=== PATIENT | female | born 1965 | race Caucasian/White ===

== ENCOUNTER 2016-06-09 19:24 | Inpatient (IN) | payer BC ==
[~2016-06-09 19:24] MED LIST: ATENOLOL25 MG PO; CLOTRIMAZOLE10 MG PO; FOLIC ACID1 MG PO; LISINOPRIL10 MG PO; OMEPRAZOLE20 M1; SERTRALINE HCL50 MG PO; SUBOXONE1 MI1; THIAMINE HCL100 MG PO
--- NOTE | 2016-06-09 23:19 | DIAGNOSTIC IMAGING REPORT ---
PROCEDURE: US ABDOMEN ULTRASOUND-LIMITED INDICATION: Epigastric and abdominal pain. History of pancreatitis. TECHNIQUE: Lyle scale and color Doppler sonographic images of the abdomen were obtained. COMPARISON: Compared to CT abdomen and pelvis on 11/26/2015 and abdominal ultrasound (11/22/2015). FINDINGS: Gallbladder is normal. No evidence of gallstones. Common duct is normal (7 mm). Portions of the pancreas are seen and findings suggest inflammatory changes. Portions of the liver and right kidney are seen, and are normal. IMPRESSION: 1. Negative ultrasound of the gallbladder. No evidence of gallstones. 2. Findings suggest inflammatory change of the pancreas. Consider pancreatitis. 3. Findings discussed with Dr. Sapphire Vazquez.
--- NOTE | 2016-06-09 23:24 | ED ORDER SUMMARY ---
..... Patient: JOSEY MOHAMUD OrderSheet [facility] VisitID: [id number] [address] [place] [address] 51y, F Registration Date/Time: 06/09/2016 ORDER SHEET Weight: 72.5 kg (stated) Allergies: Codeine GENERAL ORDERS: Portrait Consultant (Continuous) (recheck today's concer) (19:38 06/09/2016 Alyssa Winter) (19:41 IJurca ER Tech1) CBC w Diff Urgent (19:39 06/09/2016 Alyssa Winter) (Ack 19:41 IJurca ER Tech1) (Sent 19:42 IJurca ER Tech1) (19:48 ASchmuck) CMP Urgent (19:39 06/09/2016 Alyssa Winter) (Ack 19:41 IJurca ER Tech1) (Sent 19:42 IJurca ER Tech1) (19:48 ASchmuck) UA-Culture if indicated Urgent (19:39 06/09/2016 Alyssa Winter) (Ack 19:41 IJurca ER Tech1) (Sent 19:42 IJurca ER Tech1) Troponin-I Urgent (19:39 06/09/2016 Alyssa Winter) (Ack 19:41 IJurca ER Tech1) (Sent 19:42 IJurca ER Tech1) (19:48 ASchmuck) Lipase Urgent (19:39 06/09/2016 Alyssa Winter) (Ack 19:41 IJurca ER Tech1) (Sent 19:42 IJurca ER Tech1) (19:48 ASchmuck) Pulse oximeter (19:39 06/09/2016 Alyssa Winter) (19:41 IJurca ER Tech1) Seizure Precautions (19:39 06/09/2016 Alyssa Winter) (19:41 IJurca ER Tech1) US Abdomen Limited (No) Urgent (20:24 06/09/2016 Alyssa Winter) (Ack 20:27 IJurca ER Tech1) (21:43 ASchmuck) Magnesium Urgent (20:31 06/09/2016 Alyssa Winter) (Ack 20:33 IJurca ER Tech1) (21:13 ASchmuck) MEDICATION ORDERS: IV FLUIDS: Morphine IV 4 mg (HIGH ALERT MEDICATION, NOW) (19:39 06/09/2016 Alyssa Winter) (Cancelled: Duplicate Order19:48 Alyssa Winter) Ativan IV 1 mg (HIGH ALERT MEDICATION, NOW) (19:49 06/09/2016 Alyssa Winter) (19:54 ASchmuck) IV NS : initial bolus none -, then 250 mL/hr for 4h (NOW) (20:24 06/09/2016 Alyssa Winter) (20:29 ASchmuck) Potassium Chloride IV 20 meq/100mL (HIGH ALERT MEDICATION, NOW, Run no faster than 10 mEq/hr) (20:31 06/09/2016 Alyssa Winter) (20:38 ASchmuck) Morphine IV 4 mg (once now. may repeat Q2H PRN pain > 5/10) (21:03 06/09/2016 Alyssa Winter) (Ack 21:14 ASchmuck) (21:20 ASchmuck) Dilaudid IV 1 mg (HIGH ALERT MEDICATION, NOW) (23:00 06/09/2016 Sue MCKEON) (23:09 ASchmuck) Zofran IV 8 mg (NOW) (23:00 06/09/2016 Sue MCKEON) (23:08 ASchmuck) ORDER SHEET NOTES: [Electronically signed by Sapphire Vazquez MD (09:11 06/14/2016)] [Electronically signed by Sahra Albert R.N. (10:43 06/14/2016)] [Electronically locked/signed by Sahra Albert R.N. (10:43 06/14/2016)]
--- NOTE | 2016-06-09 23:24 | ED ORDER SUMMARY ---
..... Patient: JOSEY MOHAMUD OrderSheet [facility] VisitID: [id number] [address] [place] [address] 51y, F Registration Date/Time: 06/09/2016 ORDER SHEET Weight: 72.5 kg (stated) Allergies: Codeine GENERAL ORDERS: [employer] Assembler (Continuous) (recheck today's concer) (19:38 06/09/2016 Alyssa Winter) (19:41 IJurca ER Tech1) CBC w Diff Urgent (19:39 06/09/2016 Alyssa Winter) (Ack 19:41 IJurca ER Tech1) (Sent 19:42 IJurca ER Tech1) (19:48 ASchmuck) CMP Urgent (19:39 06/09/2016 Alyssa Winter) (Ack 19:41 IJurca ER Tech1) (Sent 19:42 IJurca ER Tech1) (19:48 ASchmuck) UA-Culture if indicated Urgent (19:39 06/09/2016 Alyssa Winter) (Ack 19:41 IJurca ER Tech1) (Sent 19:42 IJurca ER Tech1) Troponin-I Urgent (19:39 06/09/2016 Alyssa Winter) (Ack 19:41 IJurca ER Tech1) (Sent 19:42 IJurca ER Tech1) (19:48 ASchmuck) Lipase Urgent (19:39 06/09/2016 Alyssa Winter) (Ack 19:41 IJurca ER Tech1) (Sent 19:42 IJurca ER Tech1) (19:48 ASchmuck) Pulse oximeter (19:39 06/09/2016 Alyssa Winter) (19:41 IJurca ER Tech1) Seizure Precautions (19:39 06/09/2016 Alyssa Winter) (19:41 IJurca ER Tech1) US Abdomen Limited (No) Urgent (20:24 06/09/2016 Alyssa Winter) (Ack 20:27 IJurca ER Tech1) (21:43 ASchmuck) Magnesium Urgent (20:31 06/09/2016 Alyssa Winter) (Ack 20:33 IJurca ER Tech1) (21:13 ASchmuck) MEDICATION ORDERS: IV FLUIDS: Morphine IV 4 mg (HIGH ALERT MEDICATION, NOW) (19:39 06/09/2016 Alyssa Winter) (Cancelled: Duplicate Order19:48 Alyssa Winter) Ativan IV 1 mg (HIGH ALERT MEDICATION, NOW) (19:49 06/09/2016 Alyssa Winter) (19:54 ASchmuck) IV NS : initial bolus none -, then 250 mL/hr for 4h (NOW) (20:24 06/09/2016 Alyssa Winter) (20:29 ASchmuck) Potassium Chloride IV 20 meq/100mL (HIGH ALERT MEDICATION, NOW, Run no faster than 10 mEq/hr) (20:31 06/09/2016 Alyssa Winter) (20:38 ASchmuck) Morphine IV 4 mg (once now. may repeat Q2H PRN pain > 5/10) (21:03 06/09/2016 Alyssa Winter) (Ack 21:14 ASchmuck) (21:20 ASchmuck) Dilaudid IV 1 mg (HIGH ALERT MEDICATION, NOW) (23:00 06/09/2016 Sue MCKEON) (23:09 ASchmuck) Zofran IV 8 mg (NOW) (23:00 06/09/2016 Sue MCKEON) (23:08 ASchmuck) ORDER SHEET NOTES: [Electronically signed by Sapphire Vazquez MD (09:11 06/14/2016)] [Electronically signed by Sahra Albert R.N. (10:43 06/14/2016)] [Electronically locked/signed by Sahra Albert R.N. (10:43 06/14/2016)]
--- NOTE | 2016-06-09 23:24 | ED CLINICAL REPORT ---
Clinical Report - Physicians/Mid Levels [facility] [address] [place] [address] 06/09/2016 19:25 Patient: JOSEY MOHAMUD Arrived- By ambulance. Historian- patient. HISTORY OF PRESENT ILLNESS Chief Complaint: SINGLE SEIZURE. Patient was last known well (Just LIVE IN CAREGIVER). This occurred today. Is no longer seizing. She has recovered. Post-ictal in the emergency department (mildly sleepy). Seizure was witnessed. Had a single isolated seizure. Seizure activity lasted (several minutes). Location of injuries- tongue. She lost consciousness and was incontinent. Generalized motor activity observed. Post-ictally has had mild headache (generalized). Did not recently change anticonvulsant medication or miss recent dose of anticonvulsant. Has not recently been ill. No recent sleep deprivation or alcohol recently. Similar symptoms previously: Once. ( reports being diagnosed with pancreatitis with the last seizure). Recent medical care: Not recently seen/assessed. REVIEW OF SYSTEMS No fever, chest pain, palpitations, black stools or skin rash. No bloody stools. She has had abdominal pain and nausea. All systems otherwise negative, except as recorded above. PAST HISTORY See nurses notes. Problems: Pancreatitis. Hypertension. Seizure Disorder. Tetanus Status. Immunizations. Substance Abuse. Additional Surgeries: Appendectomy. Thoracic outlet surgery. Medications: Suboxone Sublingual. Atenolol Oral. Allergies: Codeine. SOCIAL HISTORY Never smoker. No alcohol use or drug use. Is a local resident. FAMILY HISTORY Negative. ADDITIONAL NOTES The nursing notes have been reviewed. PHYSICAL EXAM Vital Signs: 06/09/2016 19:32 BP: 171/96. HR: 135. RR: 15. O2 saturation: 97%. Temp: 97.9 F. Blood pressure normal. Oxygen saturation normal. Appearance: Alert. No acute distress. Eyes: Pupils equal, round and reactive to light. No nystagmus. Extraocular movements normal. ENT: Normal ENT inspection. TM's normal. Tongue: mild tenderness and swelling (left distal aspect). Moist mucous membranes. Pharynx normal. Neck: Normal inspection. Neck supple. CVS: Normal heart rate and rhythm. Heart sounds normal. Pulses normal. Respiratory: No respiratory distress. Breath sounds normal. Abdomen: Soft. Mild tenderness in the epigastric area. No organomegaly. Back: Normal inspection. Skin: Skin warm and dry. Normal skin color. No rash. Normal skin turgor. Extremities: Extremities exhibit normal ROM. No lower extremity edema. Neuro: Oriented X 3. Alertness is decreased (sleepy). Mood/affect normal. Speech normal. Cranial nerves normal (as tested). No cerebellar findings. No motor deficit. No sensory deficit. Reflexes normal. LABS, X-RAYS, AND EKG Abdominal Sonogram: The gallbladder is normal. Common duct is normal. Normal liver. Aorta normal. No free fluid. The study was independently viewed by me, interpreted by the radiologist and discussed with the radiologist. Study included the upper abdomen. Prior studies were not available for comparison. Laboratory Tests: CBC w Diff: (TENZIN: 06/09/2016 19:35) ( [facility] [place] 06/09/2016 19:47) Final results Test Result Flag Units (Reference) WHITE BLOOD COUNT 12.4 H K/uL (4.5-11.5) RED BLOOD COUNT 4.67 M/uL (4.00-5.20) HEMOGLOBIN 15.2 gm/dL (12.0-16.0) HEMATOCRIT 44.4 % (36.0-46.0) MEAN CELL VOLUME 95 fL (80-100) MEAN CORPUSCULAR HGB 33 pg (26-34) MEAN CORPUSCULAR HGB CONC 34 g/dL (31-37) RED CELL DISTRIBUTION WIDTH 14.1 % (11.6-14.8) PLATELET COUNT 317 K/uL (150-400) NEUTROPHIL % 89.8 H % (50-75) LYMPH % 6.6 L % (25-40) MONO % 3.2 % (3-14) EOSINOPHIL % 0 % (0-4) BASOPHIL % 0.4 % (0-2) CMP: (TENZIN: 06/09/2016 19:35) ( MngRcvd 06/09/2016 20:09) Final results Test Result Flag Units (Reference) GLUCOSE 210 H mg/dL (70-110) BUN 18 mg/dL (7-18) CREATININE 1.3 mg/dL (0.6-1.3) Estimated GFR 45.90 mL/min Estimated GFR- 55.63 mL/min Note: Persistent reduction over 3 months in eGFR<60 mL/min/1.73 m2 defines CKD. Patients with eGFR values>=60 mL/min/1.73 m2 may also have CKD if evidence ofpersistent proteinuria. Additional information may be foundat www.kidney.org. SODIUM 139 mmol/L (136-145) POTASSIUM 3.1 L mmol/L (3.5-5.1) CHLORIDE 98 mmol/L (98-107) CARBON DIOXIDE 23 mmol/L (21-32) CALCIUM 9.5 mg/dL (8.5-10.1) TOTAL PROTEIN 7.7 g/dL (6.4-8.2) ALBUMIN 4.4 g/dL (3.3-5.0) BILIRUBIN, TOTAL 0.9 mg/dL (0.0-1.0) ALKALINE PHOSPHATASE 116 U/L (46-116) AST (SGOT) 23 U/L (15-37) ALT (SGPT) 33 U/L (12-78) LIPASE 3677 H U/L (73-393) TROPONIN I <0.05 ng/mL (0.00-1.5) TROPONIN REFERENCE RANGE:<0.1 NEGATIVE0.1-1.5 INDETERMINANT>1.5 POSITIVE . Pulse Oximetry: 06/09/2016 19:32 O2 saturation: 97%. (FIO2 - room air). Interpretation: normal. PROGRESS AND PROCEDURES Course of Care: The patient is a pleasant 51-year-old female with past medical history significant for seizure presenting for evaluation of seizure. The patient has had a seizure from unknown amount of time. Patient is postictal here in the emergency department as well as having symptoms of seizures such as hypertension tachycardia, and headache. Do not feel patient has meningitis or subarachnoid hemorrhage. Patient had a similar episode and was diagnosed with bronchitis. This is somewhat unusual however we will order a lipase for this. Patient reports no [place] and does not know what specifically it caused her seizure. The patient reports that she has been having some abdominal pain over the past few days. Patient does not have any signs of icterus or other concerning symptoms regarding the gastrointestinal tract. Seizure precautions have been ordered. The patient is unclear of the last time she was evaluated for her seizure. Patient is unsure if she had had a CT scan done. Hospital records of interviewed. Patient noted to have a visit here in the emergency department on November 2015. Patient was diagnosed with a seizure there and obtaining a CT scan of the head which did not show any signs of acute intracranial abnormalities. Because of this, do not feel a CT scan is needed at this time. Patient is oriented 3 and only slightly sleepy. Patient is recovering as expected from a seizure. Workup shows patient to have elevated lipase. Lipase is over 3000. Because of this, patient will be rehydrated aggressively. Medications for seizure prophylaxis had been given. Patient reports improvement with her symptoms. Because of the elevated lipase, ultrasound will be ordered. Patient workup also shows a mild leukocytosis at 12.4. Potassium is also low. Because of patient's bowel rest, will be giving the patient potassium through the IV however we'll monitor for any signs of phlebitis or intolerance. At this point in time patient's ultrasound is pending. Patient will be signed out to the oncoming doctor at the time of shift change. Plan is follow up with the patient's imaging and appropriate disposition. Taylor note: Pt was signed out to me by Dr. Xiong, pending US and final disposition. I did feel the pt should be admitted for her pancreatitis. Her US showed no cholelithiasis, and the cause of her pancreatitis was unclear. Symptoms not much better. Discussed case with hospitalist, (Yojana). Reviewed test results and need for additional work-up. Agreed upon treatment plan and decision to admit. Health care provider will see patient in hospital. Old medical records reviewed. Disposition: Admitted to Acute Care. Condition: stable and serious. CLINICAL IMPRESSION Generalized seizure. History of idiopathic etiology epilepsy. Acute idiopathic pancreatitis. (Electronically signed by Sapphire Vazquez MD 06/14/2016 9:11)
--- NOTE | 2016-06-09 23:24 | ED NURSING NOTES ---
Clinical Report - Nurses [facility] [address] [place] [address] 06/09/2016 19:25 Patient: JOSEY MOHAMUD TRIAGE Triage time 19:25 Jun 09 2016. Acuity: LEVEL 3. Chief Complaint: SEIZURE (single episode). 19:32 06/09/16. Alert. No acute distress. SEPSIS SCREEN: Sepsis Screen. Negative (no infection suspected/documented). LIZ COMA SCORE: [place] Coma Scale: 15- eyes open spontaneously (4); best verbal response- oriented x 4 (5); best motor response- obeys commands (6). --19:32 Estefania Wilson 19:32 06/09/16. BP: 171/96. HR: 135. RR: 15. O2 saturation: 97%. Temp: 97.9 F. Pain level now 9/10. --19:32 Estefania Wilson. Weight: 72.5 kg stated. Height/Length: 64 inches Per Patient. BMI: 27.5. --19:30 Estefania Wilson. Medications Atenolol Oral. --19:27 Estefania Wilson Suboxone Sublingual. --19:31 Estefania Wilson. Allergies Codeine. --19:31 Estefania Wilson. Medication/allergy information source: the patient and EMS. --19:32 Esetfania Wilson. History Arrived by EMS. Historian: patient. Accompanied by (EMS). No primary care physician. This occurred just prior to arrival. It was witnessed. The patient lost consciousness. No injuries. ( Pt reports that she has a headache, but denies hitting head. Also has a stomach ache, "I have been getting sick all day." Pt reports that this was her second seizure, last one was in November of 2015.). No recent illness or history of recent trauma. Treatment GEOPHYSICAL SUPPORT SPECIALIST: See EMS report. EMS treatment GEOPHYSICAL SUPPORT SPECIALIST verbally communicated. Finger stick glucose performed (248 BGL). BP: 156/80. HR: 130. RR: 12. O2 saturation: 99 % 2 LPM (nasal cannula). ( saw patient having seizure, unsure of length of time. Incontinent, was postictal.). PAST MEDICAL HX: Seizures. No history of diabetes mellitus or hypertension. Immunizations: up-to-date. Has not received seasonal influenza immunization. SOCIAL HX: Heavy tobacco smoker (cigarette)- less than 1 pack per day. No alcohol use or drug use. FALL RISK ASSESSMENT: Fall risk assessment completed. No fall risk identified. NUTRITIONAL RISK ASSESSMENT: The nutritional risk assessment revealed no deficiencies. FUNCTIONAL ASSESSMENT: Functional assessment: no impairments noted. LEARNING NEEDS ASSESSMENT: The learning needs assessment revealed no barriers. SKIN INTEGRITY ASSESSMENT: Skin integrity risk assessment completed. No skin integrity risk identified. --19:32 Estefania Wilson. PROBLEMS: Pancreatitis. Hypertension. Chest Pain. Laceration. Substance Abuse. --19:36 Estefania Wilson. ADDITIONAL SURGERIES: The following entry was struck by Sapphire Vazquez MD, 21:53 Reason - duplicate <<STRICKEN ENTRY-- Can't recall. --19:32 Sapphire Vazquez MD --END STRIKE>>. Interventions ID band on patient. --19:32 Estefania Wilson. PHYSICAL ASSESSMENT 19:06/09/16. To room via stretcher. Patient gowned. GENERAL / NEURO / PSYCH: Alert. Oriented X 4. Appears in no acute distress. Speech within normal limits. Patient appears well-nourished. HEENT: No facial asymmetry noted. Pupils equal, round and reactive to light. Mucous membranes are pink. RESPIRATORY: Respirations not labored. CVS: Capillary refill less than 2 seconds. GI / : Abdomen soft. SKIN: Skin intact. Skin is warm and dry. Normal skin turgor. --19:32 Estefania Wilson. NURSING PROGRESS NOTES :33 06/09/16. laboratory monitor, pulse oximeter and NIBP monitor placed on patient; cardiac cath lab manager- Lead II and V5; monitor alarms on. Reassurance given. Two patient identifiers checked. Call light placed in reach. Side rails up x 1. Bed placed in lowest position. Brakes of bed on. Patient ready for evaluation- chart flagged and ED physician notified. --19:33 Estefania Wilson 19:33 06/09/16. ( Warm blanket provided.). --19:33 Estefania iWlson 19:37 06/09/2016 Site #1 started via IV in the right antecubital space with an 20g angiocath, with aseptic technique and good blood return; one attempt. Blood drawn: rainbow set. Labeled in the presence of the patient and sent to the lab. Saline lock flushed with 10 mL saline. --19:37 Ivanna Corbin R.N. 19:53 06/09/2016 Ativan (LORazepam) IVP 1 mg given over 30 second(s) via site #1. Allergies verified, confirmed 5 rights and sedative warning given to the patient. IV patency established. IV site checked: no pain, redness, or swelling. IV flushed thoroughly pre- and post-medication administration. IVP given by RN. --19:54 Estefania Wilson 19:59 06/09/16. BP: 158/98. HR: 139. O2 saturation: 97% on room air. --19:59 Estefania Wilson 20:00 06/09/16. Seizure precautions initiated: side rails up x2 and padded and suction and family at bedside. --20:00 Estefania Wilson 20:29 06/09/2016 Started bag #1 1000 mL IV Fluids IV NS (Saline); at 250 mL/hr over 4 hour(s) via site #1 via IV pump. Allergies verified and confirmed 5 rights. IV patency established. IV site checked: no pain, redness, or swelling. IV flushed thoroughly pre- and post-medication administration. --20:29 Estefania Wilson 20:38 06/09/2016 Started 20 meq of Potassium Chloride (Potassium Chloride) IVPB in bag #1 1000 mL; at 50 mL/hr over 2 hour(s) via site #1 via IV pump. Allergies verified and confirmed 5 rights. IV patency established. IV site checked: no pain, redness, or swelling. IV flushed thoroughly pre- and post-medication administration. --20:38 Estefania Wilson 20:41 06/09/16. BP: 160/103. HR: 135. RR: 14 (regular). O2 saturation: 96% on room air. Pain level now: 5/10. --20:46 Estefania Wilson 20:46 06/09/16. ( Family at bedside.). --20:46 Estefania Wilson 21:20 06/09/2016 Morphine IVP 4 mg given over 1 minute(s) via site #1. Allergies verified, confirmed 5 rights and sedative warning given to the patient and patient's family. IV patency established. IV site checked: no pain, redness, or swelling. IV flushed thoroughly pre- and post-medication administration. IVP given by RN. --21:20 Estefania Wilson 21:21 06/09/16. BP: 161/89. HR: 134. RR: 15. O2 saturation: 97% on room air. Pain level now: 7/10. Additional comments: Pain level taken prior to Morphine admin. --21:21 Estefania Wilson ( US at bedside.). --21:21 Estefania Wilson 22:13 06/09/16. BP: 184/106. HR: 129. O2 saturation: 97% on room air. --22:13 Estefania Wilson 22:47 06/09/2016 Potassium Chloride IVPB Discontinued: bag #1 infused. Total amount infused: 100 mL. --22:47 Estefania Wilson Care transferred and report received (from PADMA Mac). --23:07 Carmela Villafuerte, R.NBoone 23:05 06/09/2016 Zofran (Ondansetron HCl) IVP 8 mg given over 2 minute(s) via site #1. Allergies verified and confirmed 5 rights. IV patency established. IV site checked: no pain, redness, or swelling. IV flushed thoroughly pre- and post-medication administration. IVP given by RN. --23:09 Estefania Wilson 23:09 06/09/2016 Dilaudid (HYDROmorphone HCl PF) IVP 1 mg given over 30 second(s) via site #1. Allergies verified, confirmed 5 rights and sedative warning given to the patient. IV patency established. IV site checked: no pain, redness, or swelling. IV flushed thoroughly pre- and post-medication administration. IVP given by RN. --23:09 Estefania Wilson 23:09 06/09/16. BP: 176/101. HR: 136. RR: 16. O2 saturation: 97% on room air. Pain level now: 12/16. --23:09 Estefania Wilson pt resting, pain is down after pain meds given. pt waiting to be admitted to floor. --23:40 Carmela Villafuerte R.N. 23:39 06/09/16. BP: 168/97. HR: 140. RR: 18 (unlabored). O2 saturation: 96% on room air. Temp: 98.8 F (oral). Pain level now: 09/15. --23:40 Carmela Villafuerte R.N. DISPOSITION / DISCHARGE Departure time: 0006. Condition at departure: stable. Admitted to Acute Care (209B). Transported via stretcher by transport team. Report was given to a nurse via a phone call. Report included patient's care, treatment, medications, reviewed medication reconcilliation, and condition (including any recent changes or anticipated changes). All questions were answered. Report was acknowledged and care was transferred. (PADMA Hou). Medication list reviewed and validated with the patient. --00:08 Carmela Villafuerte R.N. 00:06 06/10/16. BP: deferred. HR: deferred. RR: deferred. O2 saturation: deferred. Temp: deferred. Pain level now deferred. --00:08 Carmela Villafuerte R.N. Departure time: 00:18. --00:20 Ivanna Corbin R.N. Locked/Released at 06/14/2016 10:43 by Sahra Albert R.N.
--- NOTE | 2016-06-09 23:24 | ED NURSING NOTES ---
Clinical Report - Nurses [facility] [address] [place] [address] 06/09/2016 19:25 Patient: JOSEY MOHAMUD TRIAGE Triage time 19:25 Jun 09 2016. Acuity: LEVEL 3. Chief Complaint: SEIZURE (single episode). 19:32 06/09/16. Alert. No acute distress. SEPSIS SCREEN: Sepsis Screen. Negative (no infection suspected/documented). LIZ COMA SCORE: [place] Coma Scale: 15- eyes open spontaneously (4); best verbal response- oriented x 4 (5); best motor response- obeys commands (6). --19:32 Estefania Wilson 19:32 06/09/16. BP: 171/96. HR: 135. RR: 15. O2 saturation: 97%. Temp: 97.9 F. Pain level now 9/10. --19:32 Estefania Wilson. Weight: 72.5 kg stated. Height/Length: 64 inches Per Patient. BMI: 27.5. --19:30 Estefania Wilson. Medications Atenolol Oral. --19:27 Estefania Wilson Suboxone Sublingual. --19:31 Estefania Wilson. Allergies Codeine. --19:31 Estefania Wilson. Medication/allergy information source: the patient and EMS. --19:32 Estefania Wilson. History Arrived by EMS. Historian: patient. Accompanied by (EMS). No primary care physician. This occurred just prior to arrival. It was witnessed. The patient lost consciousness. No injuries. ( Pt reports that she has a headache, but denies hitting head. Also has a stomach ache, "I have been getting sick all day." Pt reports that this was her second seizure, last one was in November of 2015.). No recent illness or history of recent trauma. Treatment ENGAGEMENT SPECIALIST: See EMS report. EMS treatment ENGAGEMENT SPECIALIST verbally communicated. Finger stick glucose performed (248 BGL). BP: 156/80. HR: 130. RR: 12. O2 saturation: 99 % 2 LPM (nasal cannula). ( saw patient having seizure, unsure of length of time. Incontinent, was postictal.). PAST MEDICAL HX: Seizures. No history of diabetes mellitus or hypertension. Immunizations: up-to-date. Has not received seasonal influenza immunization. SOCIAL HX: Heavy tobacco smoker (cigarette)- less than 1 pack per day. No alcohol use or drug use. FALL RISK ASSESSMENT: Fall risk assessment completed. No fall risk identified. NUTRITIONAL RISK ASSESSMENT: The nutritional risk assessment revealed no deficiencies. FUNCTIONAL ASSESSMENT: Functional assessment: no impairments noted. LEARNING NEEDS ASSESSMENT: The learning needs assessment revealed no barriers. SKIN INTEGRITY ASSESSMENT: Skin integrity risk assessment completed. No skin integrity risk identified. --19:32 Estefania Wilson. PROBLEMS: Pancreatitis. Hypertension. Chest Pain. Laceration. Substance Abuse. --19:36 Estefania Wilson. ADDITIONAL SURGERIES: The following entry was struck by Sapphire Vazquez MD, 21:53 Reason - duplicate <<STRICKEN ENTRY-- Can't recall. --19:32 Sapphire Vazquez MD --END STRIKE>>. Interventions ID band on patient. --19:32 Estefania Wilson. PHYSICAL ASSESSMENT 19:06/09/16. To room via stretcher. Patient gowned. GENERAL / NEURO / PSYCH: Alert. Oriented X 4. Appears in no acute distress. Speech within normal limits. Patient appears well-nourished. HEENT: No facial asymmetry noted. Pupils equal, round and reactive to light. Mucous membranes are pink. RESPIRATORY: Respirations not labored. CVS: Capillary refill less than 2 seconds. GI / : Abdomen soft. SKIN: Skin intact. Skin is warm and dry. Normal skin turgor. --19:32 Estefania Wilson. NURSING PROGRESS NOTES :33 06/09/16. focus puller, pulse oximeter and NIBP monitor placed on patient; cardiac nurse practitioner- Lead II and V5; monitor alarms on. Reassurance given. Two patient identifiers checked. Call light placed in reach. Side rails up x 1. Bed placed in lowest position. Brakes of bed on. Patient ready for evaluation- chart flagged and ED physician notified. --19:33 Estefania Wilson 19:33 06/09/16. ( Warm blanket provided.). --19:33 Estefania Wilson 19:37 06/09/2016 Site #1 started via IV in the right antecubital space with an 20g angiocath, with aseptic technique and good blood return; one attempt. Blood drawn: rainbow set. Labeled in the presence of the patient and sent to the lab. Saline lock flushed with 10 mL saline. --19:37 Ivanna Corbin R.N. 19:53 06/09/2016 Ativan (LORazepam) IVP 1 mg given over 30 second(s) via site #1. Allergies verified, confirmed 5 rights and sedative warning given to the patient. IV patency established. IV site checked: no pain, redness, or swelling. IV flushed thoroughly pre- and post-medication administration. IVP given by RN. --19:54 Estefania Wilson 19:59 06/09/16. BP: 158/98. HR: 139. O2 saturation: 97% on room air. --19:59 Estefania Wilson 20:00 06/09/16. Seizure precautions initiated: side rails up x2 and padded and suction and family at bedside. --20:00 Estefania Wilson 20:29 06/09/2016 Started bag #1 1000 mL IV Fluids IV NS (Saline); at 250 mL/hr over 4 hour(s) via site #1 via IV pump. Allergies verified and confirmed 5 rights. IV patency established. IV site checked: no pain, redness, or swelling. IV flushed thoroughly pre- and post-medication administration. --20:29 Estefania Wilson 20:38 06/09/2016 Started 20 meq of Potassium Chloride (Potassium Chloride) IVPB in bag #1 1000 mL; at 50 mL/hr over 2 hour(s) via site #1 via IV pump. Allergies verified and confirmed 5 rights. IV patency established. IV site checked: no pain, redness, or swelling. IV flushed thoroughly pre- and post-medication administration. --20:38 Estefania Wilson 20:41 06/09/16. BP: 160/103. HR: 135. RR: 14 (regular). O2 saturation: 96% on room air. Pain level now: 5/10. --20:46 Estefania Wilson 20:46 06/09/16. ( Family at bedside.). --20:46 Estefania Wilson 21:20 06/09/2016 Morphine IVP 4 mg given over 1 minute(s) via site #1. Allergies verified, confirmed 5 rights and sedative warning given to the patient and patient's family. IV patency established. IV site checked: no pain, redness, or swelling. IV flushed thoroughly pre- and post-medication administration. IVP given by RN. --21:20 Estefania Wilson 21:21 06/09/16. BP: 161/89. HR: 134. RR: 15. O2 saturation: 97% on room air. Pain level now: 7/10. Additional comments: Pain level taken prior to Morphine admin. --21:21 Estefania Wilson ( US at bedside.). --21:21 Estefania Wilson 22:13 06/09/16. BP: 184/106. HR: 129. O2 saturation: 97% on room air. --22:13 Estefania Wilson 22:47 06/09/2016 Potassium Chloride IVPB Discontinued: bag #1 infused. Total amount infused: 100 mL. --22:47 Estefania Wilson Care transferred and report received (from PADMA Mac). --23:07 Carmela Villafuerte, R.NBoone 23:05 06/09/2016 Zofran (Ondansetron HCl) IVP 8 mg given over 2 minute(s) via site #1. Allergies verified and confirmed 5 rights. IV patency established. IV site checked: no pain, redness, or swelling. IV flushed thoroughly pre- and post-medication administration. IVP given by RN. --23:09 Estefania Wilson 23:09 06/09/2016 Dilaudid (HYDROmorphone HCl PF) IVP 1 mg given over 30 second(s) via site #1. Allergies verified, confirmed 5 rights and sedative warning given to the patient. IV patency established. IV site checked: no pain, redness, or swelling. IV flushed thoroughly pre- and post-medication administration. IVP given by RN. --23:09 Estefania Wilson 23:09 06/09/16. BP: 176/101. HR: 136. RR: 16. O2 saturation: 97% on room air. Pain level now: 12/16. --23:09 Estefania Wilson pt resting, pain is down after pain meds given. pt waiting to be admitted to floor. --23:40 Carmela Villafuerte R.N. 23:39 06/09/16. BP: 168/97. HR: 140. RR: 18 (unlabored). O2 saturation: 96% on room air. Temp: 98.8 F (oral). Pain level now: 09/15. --23:40 Carmela Villafuerte R.N. DISPOSITION / DISCHARGE Departure time: 0006. Condition at departure: stable. Admitted to Acute Care (209B). Transported via stretcher by transport team. Report was given to a nurse via a phone call. Report included patient's care, treatment, medications, reviewed medication reconcilliation, and condition (including any recent changes or anticipated changes). All questions were answered. Report was acknowledged and care was transferred. (PADMA Hou). Medication list reviewed and validated with the patient. --00:08 Carmela Villafuerte R.N. 00:06 06/10/16. BP: deferred. HR: deferred. RR: deferred. O2 saturation: deferred. Temp: deferred. Pain level now deferred. --00:08 Carmela Villafuerte R.N. Departure time: 00:18. --00:20 Ivanna Corbin R.N. Locked/Released at 06/14/2016 10:43 by Sahra Albert R.N.
[2016-06-10] VITALS (10 sets, daily range): BP systolic 143–214; BP diastolic 77–118
--- NOTE | 2016-06-10 07:40 | Progress Note ---
Subjective General Note Date: June 10, 2016 Admission Date: June 09, 2016 Hospital Day: 2 PCP: Merly GARCIA Status: Inpatient Advanced Directive: FULL CODE Room: 209-B Brief History: The patient is a 51-year-old white female with a significant past medical history of alcohol abuse, pancreatitis, alcohol withdrawal seizures, hypertension, gastroesophageal reflux, depression, who presented to [facility] emergency room on the day of admission secondary to suspected seizure. [facility] ER evaluation was consistent with probable alcohol withdrawal seizure, pancreatitis. Secondary to the above, the patient was admitted by Sara Dial M.D. for further evaluation and treatment. For other history present illness, past medical history, family history, social history, review of systems, and admission physical examination please see the patient's history and physical examination and ER visit note in the patient's medical record. Subjective: The patient states she has persistent abdominal pain. No vomiting. Denies alcohol use recently. Patient requests: No specific Medications and Allergies Medications Current Medications Sig/Sammy Start time Last Medication Dose Route Stop Time Status Admin Lorazepam 1 MG Q6H 06/13 0730 AC PO 06/14 0300 Lorazepam 1 MG Q6H 06/13 0730 AC IV 06/14 0300 Lorazepam 1 MG Q6H 06/12 0730 AC PO 06/13 0300 Lorazepam 1 MG Q6H 06/12 0730 AC IV 06/13 0300 Lorazepam 1 MG Q4H 06/11 0730 AC PO 06/12 0500 Lorazepam 1 MG Q4H 06/11 0730 AC IV 06/12 0500 Multivitamins 10 ML 0900 06/10 0900 AC Thiamine HCl 100 MG IV 06/10 1700 Folic Acid 1 MG Sodium Chloride 500 ML Dextrose/Sodium 1,000 ML ASDIRECTED 06/10 0745 UNV Chloride/Electrolyt IV Sodium Chloride 1,000 ML ASDIRECTED 06/10 0745 UNV IV Atenolol 25 MG DAILY 06/10 0730 AC PO Diazepam 5 MG PRN PRN 06/10 0730 AC IV Hydromorphone HCl 1 MG Q2H PRN 06/10 0730 AC IV Hydromorphone HCl 0.5 MG Q2H PRN 06/10 0730 AC IV Lorazepam 2 MG Q6H 06/10 0730 AC PO 06/11 0300 Lorazepam 2 MG Q6H 06/10 0730 AC IV 06/11 0300 Lorazepam 0.5 MG Q30MIN PRN 06/10 07 AC PO Lorazepam 0.5 MG Q30MIN PRN 06/10 0730 AC IV Metoprolol Tartrate 2.5 MG Q6HR 06/10 07 AC IV Pantoprazole Sodium 40 MG PPIBID 06/10 07 AC IV Ondansetron HCl 4 MG Q4H PRN 06/10 0045 AC 06/10 IV 0104 Allergies Coded Allergies: Codeine (Nausea 11/21/15) Physical Exam Vital Signs / I&Os Vital Signs Date Time Temp Pulse Resp B/P Pulse O2 O2 Flow FiO2 Ox Delivery Rate 06/10 0637 98.1 118 18 202/94 94 Room Air 06/10 0245 116 06/10 0215 98.4 129 16 173/89 95 Room Air 06/10 0032 98.8 118 18 143/87 93 Room Air 0.0 General Appearance Alert, Oriented X3, Cooperative, No acute distress Lungs Clear to auscultation Cardiovascular Regular rate and rhythm, Normal S1 and S2, mild tachycardia Abdomen Bowel sounds hypoactive, mild distention, diffuse tenderness most prominent in the epigastric region Extremities No cyanosis, No clubbing, No edema, Normal pulses Neurological Grossly normal Psych/Mental Status Mental status normal, Mood normal LAB Results Laboratory Tests 06/10 06/10 06/09 06/09 0525 0500 1935 1935 Chemistry Plasma Sodium (136 - 145 mmol/L) 144 139 Plasma Potassium (3.5 - 5.1 mmol/L) 3.0 3.1 Plasma Chloride (98 - 107 mmol/L) 108 98 CO2 (Enzymatic) (21 - 32 mmol/L) 23 23 BUN (7 - 18 mg/dL) 17 18 Creatinine (0.6 - 1.3 mg/dL) 0.6 1.3 Est GFR ( Amer) (mL/min) >60 55.63 Est GFR (Non-Af Amer) (mL/min) >60 45.90 Glucose (70 - 110 mg/dL) 117 210 Hemoglobin A1c % Pending Plasma Calcium (8.5 - 10.1 mg/dL) 8.1 9.5 Plasma Magnesium (1.8 - 2.4 mg/dL) 1.8 Total Bilirubin (0.0 - 1.0 mg/dL) 0.9 AST (15 - 37 U/L) 23 ALT (12 - 78 U/L) 33 Alkaline Phosphatase (46 - 116 U/L) 116 Troponin (0.00 - 1.5 ng/mL) <0.05 Total Protein (6.4 - 8.2 g/dL) 7.7 Albumin (3.3 - 5.0 g/dL) 4.4 Lipase (73 - 393 U/L) 3677 Hematology WBC (4.5 - 11.5 K/uL) 9.3 12.4 RBC (4.00 - 5.20 M/uL) 3.87 4.67 Hgb (12.0 - 16.0 gm/dL) 12.6 15.2 Hct (36.0 - 46.0 %) 36.7 44.4 MCV (80 - 100 fL) 95 95 MCH (26 - 34 pg) 33 33 RDW (11.6 - 14.8 %) 14.4 14.1 Neut % (Auto) (50 - 75 %) 81.7 89.8 Lymph % (Auto) (25 - 40 %) 12.1 6.6 [place] % (Auto) (3 - 14 %) 5.7 3.2 Eos % (Auto) (0 - 4 %) 0.1 0 Baso % (Auto) (0 - 2 %) 0.4 0.4 Plt Count, EDTA (150 - 400 K/uL) 237 317 PUBS MCHC (31 - 37 g/dL) 35 34 Assessment and Plan Problem List 1. Alcohol withdrawal seizure Plan -Patient admitted with history of unwitnessed seizure -Family is concerned for possible alcohol abuse, patient maintains no alcohol usage in the last 3 months -Possible alcohol withdrawal seizure -Monitor -Neurological exam unremarkable at this time 2. Pancreatitis Plan -Patient presents with findings of recurrent pancreatitis -Previous episode related to alcohol abuse -Patient denies all usage at this time (see above) -Persistent abdominal pain -Lipase amylase remained elevated -IV fluid therapy, antiemetics, pain control -Check CT scan in a.m., ERCP/MRCP due to recurrent pancreatitis with no clear etiology -Check lipid profile 3. Hypokalemia Plan -Patient with findings of hypokalemia -Potassium 40 mEq IV now -Recheck potassium this p.m. -Supplemental potassium as necessary -Monitor 4. Hypomagnesemia Status Acute Onset Date Unknown Plan -Patient with hypomagnesemia -Magnesium supplementation as necessary -Monitor 5. Hypertension Plan -Patient with blood pressure elevation -Nitro paste 1.5 inches topically every 6 hours -Vasotec 1.25 mg IV every 6 hours -Lopressor 5 mg IV every 6 hours -Monitor 6. ETOH abuse Plan -Patient denies EtOH abuse -Previous history of EtOH abuse, patient's family suspects ongoing usage -Monitor closely for alcohol withdrawal syndrome Current status: Fair, unstable Anticipated discharge date: Anticipated discharge 3-4 days Anticipated discharge placement: Home Patient care time: Time spent in chart review, patient interview, physical exam, CPOE, and care documentation: 25 minutes Visit to patient today: 1 Complexity of care: Moderate E&M Codes Rounding: Inpt-Moderate/42021
--- NOTE | 2016-06-10 08:24 | HISTORY AND PHYSICAL ---
ADMITTED: 06/09/2016 CHIEF COMPLAINT: 1. Abdominal pain 2. Vomiting 3. Possible seizure HISTORY OF PRESENT ILLNESS: This is a 51-year-old female, previously admitted for alcoholic pancreatitis, who states that she quit drinking 3 months ago, presenting to the hospital after her found her foaming at the mouth and with urinary incontinence after 3 days of progressively worsening abdominal pain, vomiting, headaches and diarrhea. The patient states that she has not drunk any alcohol in 3 months. During her last hospitalization, she did also claim that she did not drink alcohol at all; however, her stated that he found empty alcohol bottles lying around the house, despite never seeing her drinking. During this hospitalization, she went through withdrawals. The patient states that approximately 2-3 days ago she started having abdominal pain , initially vomiting, which then turned into dry heaving and a headache. She also been having watery diarrhea several times a day. No hematochezia or melena. Her abdominal pain is epigastric and left upper quadrant. It has been getting progressively worse over the last couple of days. On the evening of admission, her found her lying on the floor, foaming at the mouth and with urinary incontinence. She claims he did not visualize any tonic-clonic motion. MEDICAL/SURGICAL HISTORY: Medical history: Alcoholic pancreatitis. Alcohol abuse. Withdrawal seizures. Hypertension. GERD. Depression. 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 Appendectomy. Adenoidectomy. MEDICATIONS: 1. Atenolol 1 tab p.o. daily. 2. Suboxone half a film sublingual daily. 3. Omeprazole 1 tablet p.o. daily. 4. Sertraline 1 tablet p.o. daily, possibly 25 mg. The patient obtains her medications from [facility] on in [place]; however, she does not know any of her doses. ALLERGIES: 1. CODEINE CAUSES NAUSEA; HOWEVER, SHE DOES NOT HAVE A PROBLEM TOLERATING MORPHINE. SOCIAL HISTORY: The patient lives with her . She is currently unemployed and has been since her seizure last summer. She smokes half pack a day and has for at least 15 years. She denies any current drug use and states she quit drinking alcohol 3 months ago. FAMILY HISTORY: Her father had esophageal cancer and was a smoker. She thinks he may have had a stroke as well. REVIEW OF SYSTEMS: A full 12-point review of systems was done and was negative except as per HPI and rhinorrhea. She states she and her are just getting over a little bit of a cold. PHYSICAL EXAMINATION: VITAL SIGNS: Blood pressure is 143/87, pulse is 118, O2 saturation is 93% on room air. T-max is 37.1 degrees Celsius. GENERAL: This is a diaphoretic female lying in bed in no apparent distress. HEENT: Head is atraumatic, normocephalic. Pupils are equal, round, and reactive to light with accommodation bilaterally. Oropharynx is nonerythematous, without exudates and moist. NECK: Trachea is midline. There is no JVD. HEART: S1, S2, regular rate and rhythm. There is a 3/6 holosystolic murmur, increased at the base. LUNGS: Clear to auscultation bilaterally. ABDOMEN: Soft, nondistended, without masses. The patient has moderate epigastric and left upper quadrant tenderness, but without peritoneal signs. EXTREMITIES: There is no peripheral edema. LAB/IMAGING: Sodium 139, potassium 3.1, chloride 98, bicarbonate 23, BUN of 18, creatinine 1.3, glucose of 210, magnesium of 1.8, calcium of 9.5, total protein 7.7, albumin 4.4, total bilirubin 0.9, alkaline phosphatase of 116, AST of 23, ALT of 33, lipase of 3677. Troponin is less than 0.05. Ultrasound of the abdomen shows a normal gallbladder with slight pancreatic abnormalities, consistent with possible pancreatitis. IMPRESSION: 1. This is a 51-year-old female with likely alcoholic pancreatitis, who likely had an alcohol withdrawal seizure this evening, despite her denying alcohol use, which she had done in the past PLAN: 1. Fluids, electrolytes, and nutrition: The patient will be n.p.o. and therefore on IV fluids. I will continue her on normal saline, given the fact that her glucose was 210 this evening. Hypokalemia: replacing. 2. Cardiac: The patient has known hypertension. We will restart her home cardiac medications when she is taking p.o. If her blood pressure goes up, we will start metoprolol IV. 3. Gastrointestinal: The patient has pancreatitis and will remain n.p.o. until pain-free. She has had some urine output finally this morning, however inadequate. We will continue high-volume IV fluids. The patient also has GERD and we will put her on IV pantoprazole. 4. Substance abuse: The patient has a history of alcohol chronic abuse and chronic pain. We will put her on the alcohol withdrawal protocol and obtain her dose of her Suboxone from the pharmacy. She is currently getting Dilaudid, however, for her abdominal pain. 5. Prophylaxis: The patient will be on pantoprazole for GI ulcer prophylaxis and we will start her on SCDs. If she remains stable through the night and then tomorrow , she likely will need to be started on chemical DVT prophylaxis. 6. CODE STATUS: FULL CODE.
--- NOTE | 2016-06-10 20:26 | Progress Note ---
Subjective General Has some DENT with the nitro we think and elevated bp still. Will try tylenol LA for DENT and add hydralazine and see if bp improves.
--- NOTE | 2016-06-10 20:26 | Progress Note ---
Subjective General Has some DENT with the nitro we think and elevated bp still. Will try tylenol NC for DENT and add hydralazine and see if bp improves.
[2016-06-11] VITALS (7 sets, daily range): BP systolic 158–194; BP diastolic 83–131
--- NOTE | 2016-06-11 07:54 | Progress Note ---
Subjective General Note Date: June 11, 2016 Admission Date: June 09, 2016 Hospital Day: 3 PCP: Merly GARCIA Status: Inpatient Advanced Directive: FULL CODE Room: 209-B Brief History: The patient is a 51-year-old white female with a significant past medical history of alcohol abuse, pancreatitis, alcohol withdrawal seizures, hypertension, gastroesophageal reflux, depression, who presented to [facility] emergency room on the day of admission secondary to suspected seizure. [facility] ER evaluation was consistent with probable alcohol withdrawal seizure, pancreatitis. Secondary to the above, the patient was admitted by Sara Dial M.D. for further evaluation and treatment. For other history present illness, past medical history, family history, social history, review of systems, and admission physical examination please see the patient's history and physical examination and ER visit note in the patient's medical record. Subjective: The patient states she has persistent abdominal pain. No vomiting. Denies alcohol use recently. Patient tremulous. Lethargic on alcohol withdrawal protocol Patient requests: No specific Medications and Allergies Medications Current Medications Sig/Sammy Start time Last Medication Dose Route Stop Time Status Admin Lorazepam 1 MG Q6H 06/13 0730 AC PO 06/14 0300 Lorazepam 1 MG Q6H / 0730 AC IV 06/14 0300 Influenza Virus 0.5 ML 0900 06/12 0900 AC Vaccine IM 06/12 1800 Lorazepam 1 MG Q6H 06/12 0730 AC PO 06/13 0300 Lorazepam 1 MG Q6H / 0730 AC IV 06/13 0300 Potassium Chloride/ 100 ML 1000 / 1000 AC Water IV 06/11 1200 Potassium Chloride/ 100 ML 0800 06/11 0800 AC Water IV 06/11 1000 Lorazepam 1 MG Q4H 06/11 0730 AC PO 06/12 0500 Lorazepam 1 MG Q4H / 0730 AC IV / 0500 Potassium Chloride/ 200 ML NOW STA 06/11 0724 CAN Water IV 06/11 1123 Acetaminophen 650 MG Q4H PRN 06/10 2030 AC NY Hydralazine HCl See Dose Q4H PRN 06/10 2030 AC 06/10 Insts (1) IV 2203 Sodium Chloride 1,000 ML ASDIRECTED 06/10 2030 AC 06/11 IV 0449 Ketorolac 30 MG Q6H PRN 06/10 1645 AC 06/11 Tromethamine IV 06/11 2246 0617 Metoprolol Tartrate 5 MG Q6HR 06/10 1637 AC 06/11 IV 0616 Enalaprilat 1.25 MG Q6HR 06/10 1145 AC 06/11 IV 0616 Nitroglycerin 1.5 GM Q6HR 06/10 1145 AC 06/11 TOP 0616 Dextrose/Sodium 1,000 ML ASDIRECTED 06/10 0745 DA 06/10 Chloride/Electrolyt IV 1639 Sodium Chloride 1,000 ML ASDIRECTED 06/10 0745 AC 06/10 IV 0801 Diazepam 5 MG PRN PRN 06/10 0730 AC IV Hydromorphone HCl 1 MG Q2H PRN 06/10 0730 AC 06/11 IV 0707 Hydromorphone HCl 0.5 MG Q2H PRN 06/10 0730 AC IV Lorazepam 0.5 MG Q30MIN PRN 06/10 0730 AC PO Lorazepam 0.5 MG Q30MIN PRN 06/10 0730 AC IV Pantoprazole Sodium 40 MG PPIBID 06/10 0730 AC 06/11 IV 0616 Ondansetron HCl 4 MG Q4H PRN 06/10 0045 AC 06/10 IV 1254 Dose Instructions: (1)Hydralazine HCl: 10 - 20 MG Allergies Coded Allergies: Codeine (Nausea 11/21/15) Physical Exam Vital Signs / I&Os Vital Signs Date Time Temp Pulse Resp B/P Pulse O2 O2 Flow FiO2 Ox Delivery Rate 06/11 0653 99.0 85 17 167/108 96 Room Air 0.0 06/11 0457 90 16 98 06/11 0259 91 16 97 06/11 0150 100.6 91 23 158/83 95 Room Air 06/11 0136 96 18 96 06/10 2257 98 11 98 06/10 2229 99.1 91 17 171/77 97 Room Air 06/10 2203 180/82 06/10 2131 79 18 180/82 96 Room Air 06/10 2119 82 18 99 06/10 2058 188/110 06/10 1955 188/110 06/10 1817 98.1 74 18 199/117 96 Room Air 06/10 1639 184/103 06/10 1615 Room Air 06/10 1431 98.2 89 18 187/115 96 Room Air 06/10 1058 98.2 103 18 214/118 97 Room Air 06/10 0900 96 06/10 0859 96 06/10 0800 Room Air I&O 06/11 0000 06/10 1600 06/10 08 Intake Total 2168 326 3049 Output Total 2604 095 425 Balance -432 -324 2624 General Appearance Cooperative, No acute distress, mild confusion, slight lethargy Lungs Clear to auscultation, Normal air movement Cardiovascular Regular rate and rhythm, Normal S1 and S2 Abdomen Normal bowel sounds, Soft, No tenderness Extremities No cyanosis, No clubbing, No edema Neurological grossly normal Psych/Mental Status Confused LAB Results Laboratory Tests 06/11 06/11 06/11 06/10 06/10 0535 0500 0500 1620 1620 Chemistry Plasma Sodium (136 - 145 mmol/L) 141 139 Cancelled Plasma Potassium (3.5 - 5.1 mmol/L) 3.1 3.1 Cancelled Plasma Chloride (98 - 107 mmol/L) 104 103 Cancelled CO2 (Enzymatic) (21 - 32 mmol/L) 24 26 Cancelled BUN (7 - 18 mg/dL) 5 9 Cancelled Creatinine (0.6 - 1.3 mg/dL) 0.5 0.5 Cancelled Est GFR ( Amer) (mL/min) >60 >60 Cancelled Est GFR (Non-Af Amer) (mL/min) >60 >60 Cancelled Glucose (70 - 110 mg/dL) 98 146 Cancelled Plasma Calcium (8.5 - 10.1 mg/dL) 8.4 8.5 Cancelled Plasma Magnesium (1.8 - 2.4 mg/dL) 1.8 Cancelled 1.6 Total Bilirubin (0.0 - 1.0 mg/dL) 0.7 AST (15 - 37 U/L) 27 ALT (12 - 78 U/L) 24 Alkaline Phosphatase (46 - 116 U/L) 78 Total Protein (6.4 - 8.2 g/dL) 6.0 Albumin (3.3 - 5.0 g/dL) 3.4 Lipase (73 - 393 U/L) 1435 Cancelled Hematology WBC (4.5 - 11.5 K/uL) 7.8 RBC (4.00 - 5.20 M/uL) 3.46 Hgb (12.0 - 16.0 gm/dL) 11.5 Hct (36.0 - 46.0 %) 33.4 MCV (80 - 100 fL) 96 MCH (26 - 34 pg) 33 RDW (11.6 - 14.8 %) 14.3 Neut % (Auto) (50 - 75 %) 80.9 Lymph % (Auto) (25 - 40 %) 12.0 [place] % (Auto) (3 - 14 %) 5.7 Eos % (Auto) (0 - 4 %) 1.1 Baso % (Auto) (0 - 2 %) 0.3 Plt Count, EDTA (150 - 400 K/uL) 186 PUBS MCHC (31 - 37 g/dL) 35 Assessment and Plan Problem List 1. Pancreatitis Plan -Patient with persistent abdominal pain -No significant nausea or vomiting -Lipase improved -Obtain CT in a.m. -IV fluids, pain medications, antiemetics -Working diagnosis is alcohol induced pancreatitis but patient does deny alcohol usage. -Consider MRCP 2. Alcohol withdrawal seizure Plan -No seizure activity since admission -Patient slightly lethargic without focal neurological deficits -Monitor -Working diagnosis is alcohol withdrawal seizure 3. Hypertension Plan -Patient with persistent hypertension -Patient on IV beta katie-Lopressor 5 mg IV every 6 hours, topical nitrates- Nitropaste 1-1/2 inches topically every 6 hours, and JOAQUINA inhibitor-Vasotec 1.25 mg IV every 6 hours. Patient with when necessary hydralazine. Switch to oral medications as appropriate. Low-salt diet when taking well orally 4. Hypokalemia Plan -Persistent hypokalemia -KCl 40 mEq IV today -Recheck potassium at 6 PM today 5. Hypomagnesemia Status Acute Onset Date Unknown Plan -Patient with hypomagnesemia -Magnesium normal at 1.8 -Recheck in a.m. -By mouth supplementation when taking well orally 6. Anemia Status Acute Onset Date Unknown Plan -Patient with mild anemia -H&H 11.5/33.4, MCV 96 -Monitor -Consider further evaluation with persistent anemia/worsening anemia 7. ETOH abuse Plan -Patient with history of EtOH abuse/dependence -Denies recent alcohol use but has symptoms of alcohol withdrawal syndrome with additional findings of pancreatitis/suspected alcohol withdrawal seizures -Continue alcohol withdrawal protocol -Monitor Current status: Unstable, fair Anticipated discharge date: Anticipated discharge in 3-4 days Anticipated discharge placement:-Home Patient care time: Time spent in chart review, patient interview, physical exam, CPOE, and care documentation: 35 minutes Visit to patient today: 2 Complexity of care: Moderate-High E&M Codes Rounding: Inpt-High/13743
[2016-06-12] VITALS (12 sets, daily range): BP systolic 135–184; BP diastolic 59–111
--- NOTE | 2016-06-12 13:13 | Progress Note ---
Subjective General Patient still very tremulous, requiring multiple doses of ativan overnight. BP remains high, but comes down with IV PRN medications. She continues to have abdominal pain, but would like to trial clear liquids today. Physical Exam Vital Signs / I&Os Vital Signs Date Time Temp Pulse Resp B/P Pulse O2 O2 Flow FiO2 Ox Delivery Rate 06/12 1022 98.8 113 17 135/82 98 Room Air 06/12 0802 167/100 02 0800 Room Air 0.0 06/12 0648 99.1 109 18 162/98 97 Room Air 06/12 0610 177/111 02/04 0404 120 155/94 02/04 0310 183/59 02/04 0205 98.1 114 18 183/59 97 Room Air 06/11 2330 99.1 119 18 179/97 97 Room Air 06/11 2135 188/112 / 2126 99.1 111 20 188/112 98 Room Air 06/11 1833 98.4 112 16 175/93 96 Room Air 06/11 1510 194/111 02/ 1451 98.4 87 20 194/111 97 Room Air I&O 06/12 0000 /03 1600 / 0800 Intake Total 884 2062 1562 Output Total 1000 1000 1400 Balance -116 1062 162 General Appearance Alert, Oriented X3, tremulous and flushed Lungs Clear to auscultation Cardiovascular Tachy, but regular S1S2, II/ systolic ejection murmur at 2RICS, also noted at apex. Abdomen Normal bowel sounds, Soft, No guarding, No rebound, tender throughout, mostly in epigastric region. Extremities No edema Neurological tremor of hands. Assessment and Plan Problem List 1. Pancreatitis Plan Lipase improving, and symptoms seem to be improving as well. Will continue IVF, pain and nausea control, and trial on clear liquids today. My impression is that this is related to alcohol abuse, as her labs on admission did not show any elevation in alk phos or transaminitis to suggest CBD stone. Furthermore, her abdominal us also did not show any gall stones and she had a normal CBD of 7mm. 2. Alcohol withdrawal Plan Appears to still be in withdrawal. Continue withdrawal protocol w/ PRN ativan. Continue thiamine, adding folic and MVI. Seizure precautions due to hx of withdrawal seizures. 3. Hypertension Plan Some of this may be alcohol withdrawal induced superimposed on chronic essential hypertension. Now that she will be on clear liquids, will restart her home lisinopril and atenolol. Continue prn hydralazine, lopressor, and clonidine as needed. 4. Anemia Status Acute Onset Date Unknown Plan Stable. No acute issues. 5. Systolic murmur Plan Murmur noted on exam. Patient denies any history. Will obtain echo to evaluate valve and cardiac function. 6. Hypokalemia Plan K 3.2 today. Will replace, and continue to monitor daily BMP. FEN: clears PPx: lovenox Code: FULL Dispo: Inpatient for above management until no longer withdrawing and able to tolerate PO. E&M Codes Rounding: Inpt-High/00654
[2016-06-13] VITALS (9 sets, daily range): BP systolic 151–196; BP diastolic 82–96
--- NOTE | 2016-06-13 11:02 | Progress Note ---
Subjective General Still having abdominal pain, but feels a little better. Was not able to drink much fluid yesterday, but will try again today. Physical Exam Vital Signs / I&Os Vital Signs Date Time Temp Pulse Resp B/P Pulse O2 O2 Flow FiO2 Ox Delivery Rate 06/13 1027 98.4 102 14 161/82 95 Room Air 06/13 0859 98 06/13 0845 Room Air 0.0 06/13 0752 170/44 06/13 0645 98.4 88 98 176/94 97 Room Air 06/13 0355 98.6 87 18 163/88 98 06/13 0135 91 163/83 06/13 0104 180/88 06/13 0103 81 180/88 06/12 2241 98.4 89 16 176/89 97 Room Air 06/12 2115 Room Air 06/12 2044 169/85 06/12 2009 98.1 95 20 168/101 97 Room Air 06/12 1640 150/90 06/12 1534 176/104 06/12 1531 176/104 06/12 1508 180/100 06/12 1426 97.7 99 16 184/102 97 Room Air 06/12 1335 110 I&O 06/13 0000 06/12 1600 06/12 0800 Intake Total 500 1771 1047 Output Total 1600 1200 1200 Balance -1100 571 -153 General Appearance Alert, Oriented X3, Cooperative, No acute distress HEENT Less flushed today Lungs Clear to auscultation Cardiovascular Regular rate and rhythm, Normal S1 and S2, No murmurs, gallops, rubs Abdomen Normal bowel sounds, Soft, No guarding, No rebound, tender in epigastric region to light palpation Extremities No edema Skin No Rashes Neurological No lateralizing signs Psych/Mental Status Mental status normal LAB Results Laboratory Tests 06/13 532 Chemistry Plasma Sodium (136 - 145 mmol/L) 137 Plasma Potassium (3.5 - 5.1 mmol/L) 3.1 Plasma Chloride (98 - 107 mmol/L) 100 CO2 (Enzymatic) (21 - 32 mmol/L) 23 BUN (7 - 18 mg/dL) 7 Creatinine (0.6 - 1.3 mg/dL) 0.5 Est GFR ( Amer) (mL/min) >60 Est GFR (Non-Af Amer) (mL/min) >60 Glucose (70 - 110 mg/dL) 124 Plasma Calcium (8.5 - 10.1 mg/dL) 9.0 Assessment and Plan Problem List 1. Pancreatitis Plan Will try to transition to PO pain medications today. Antiemetics prn. Retry clear liquids. 2. Alcohol withdrawal seizure Plan Continue withdrawal protocol w/ PRN ativan (should technically be last day for her needing this). Continue MVI, thiamine, folic. Seizure precautions. 3. Hypertension Plan Will continue her atenolol, and increasing her lisinopril as she is still requiring a lot of PRNs. D/c'd IV lopressor in favor of clonidine, and will continue prn hydralazine and vasotec. 4. Systolic murmur Plan Murmur not heard today. Echo still pending to eval valve function. 5. Hypokalemia Plan Replace as needed. FEN: clears PPx: lovenox Code: FULL Dispo: Inpatient for above management until no longer withdrawing and able to tolerate PO. E&M Codes Rounding: Inpt-Moderate/73447
[2016-06-14] VITALS (7 sets, daily range): BP systolic 139–188; BP diastolic 76–104
--- NOTE | 2016-06-14 10:44 | ED MAR SUMMARY ---
..... Medication Administration Record [facility] [address] [place] [address] Patient: JOSEY MOHAMUD Visit ID: [id number] 51y, F Weight: 72.5 kg Height/Length: 64 in BMI: 27.5 ALLERGIES: Codeine Given 19:53 06/09/2016 Estefania Wilson, Medication Administered: ATIVAN [IVP] (LORAZEPAM), Dose: 1 mg IVP over 30 second(s), Site: #1 right AC. Medication Ordered: Ativan IV 1 mg (HIGH ALERT MEDICATION, NOW). Start 20:29 06/09/2016 Estefania Wilson, Medication Administered: IV NS (SALINE), Dose: IV Fluids over 4 hour(s), Rate: 250 mL/hr, Dispensed: 1000 mL bag, Site: #1 right AC. Medication Ordered: IV NS : initial bolus none -, then 250 mL/hr for 4h (NOW). Start 20:38 06/09/2016 Estefania Wilson,, Stop 22:47 06/09/2016 Estefania Wilson, Medication Administered: POTASSIUM CHLORIDE [IVPB] (POTASSIUM CHLORIDE), Dose: 20 meq IVPB over 2 hour(s), Rate: 50 mL/hr, Dispensed: 1000 mL bag, Site: #1 right AC. Medication Ordered: Potassium Chloride IV 20 meq/100mL (HIGH ALERT MEDICATION, NOW, Run no faster than 10 mEq/hr). Given 21:20 06/09/2016 Estefania Wilson, Medication Administered: MORPHINE [IVP], Dose: 4 mg IVP over 1 minute(s), Site: #1 right AC. Medication Ordered: Morphine IV 4 mg (once now. may repeat Q2H PRN pain > 5/10). Given 23:05 06/09/2016 Estefania Wilson, Medication Administered: ZOFRAN [IVP] (ONDANSETRON HCL), Dose: 8 mg IVP over 2 minute(s), Site: #1 right AC. Medication Ordered: Zofran IV 8 mg (NOW). Given 23:09 06/09/2016 Estefania Wilson, Medication Administered: DILAUDID [IVP] (HYDROMORPHONE HCL PF), Dose: 1 mg IVP over 30 second(s), Site: #1 right AC. Medication Ordered: Dilaudid IV 1 mg (HIGH ALERT MEDICATION, NOW).
--- NOTE | 2016-06-14 10:44 | ED MAR SUMMARY ---
..... Medication Administration Record [facility] [address] [place] [address] Patient: JOSEY MOHAMUD Visit ID: [id number] 51y, F Weight: 72.5 kg Height/Length: 64 in BMI: 27.5 ALLERGIES: Codeine Given 19:53 06/09/2016 Estefania Wilson, Medication Administered: ATIVAN [IVP] (LORAZEPAM), Dose: 1 mg IVP over 30 second(s), Site: #1 right AC. Medication Ordered: Ativan IV 1 mg (HIGH ALERT MEDICATION, NOW). Start 20:29 06/09/2016 Estefania Wilson, Medication Administered: IV NS (SALINE), Dose: IV Fluids over 4 hour(s), Rate: 250 mL/hr, Dispensed: 1000 mL bag, Site: #1 right AC. Medication Ordered: IV NS : initial bolus none -, then 250 mL/hr for 4h (NOW). Start 20:38 06/09/2016 Estefania Wilson,, Stop 22:47 06/09/2016 Estefania Wilson, Medication Administered: POTASSIUM CHLORIDE [IVPB] (POTASSIUM CHLORIDE), Dose: 20 meq IVPB over 2 hour(s), Rate: 50 mL/hr, Dispensed: 1000 mL bag, Site: #1 right AC. Medication Ordered: Potassium Chloride IV 20 meq/100mL (HIGH ALERT MEDICATION, NOW, Run no faster than 10 mEq/hr). Given 21:20 06/09/2016 Estefania Wilson, Medication Administered: MORPHINE [IVP], Dose: 4 mg IVP over 1 minute(s), Site: #1 right AC. Medication Ordered: Morphine IV 4 mg (once now. may repeat Q2H PRN pain > 5/10). Given 23:05 06/09/2016 Estefania Wilson, Medication Administered: ZOFRAN [IVP] (ONDANSETRON HCL), Dose: 8 mg IVP over 2 minute(s), Site: #1 right AC. Medication Ordered: Zofran IV 8 mg (NOW). Given 23:09 06/09/2016 Estefania Wilson, Medication Administered: DILAUDID [IVP] (HYDROMORPHONE HCL PF), Dose: 1 mg IVP over 30 second(s), Site: #1 right AC. Medication Ordered: Dilaudid IV 1 mg (HIGH ALERT MEDICATION, NOW).
--- NOTE | 2016-06-14 10:44 | ED MED RECONCILIATION SUMMARY ---
Patient: JOSEY MOHAMUD Medication Reconciliation Report [facility] VisitID: [id number] [address] [place] [address] 51y, F Registration Date/Time: 06/09/2016 Weight: 72.5 kg Height/Length: 64 in. BMI: 27.5 ALLERGIES: Codeine The patient's Home Medications are listed below: THE FOLLOWING MEDICATIONS NEED TO BE RECONCILED: Atenolol Oral Suboxone Sublingual The source(s) of the original Home Medication information: patient EMS The following Medications were given to the patient in the Emergency Department: Ativan [IVP] IVP 1 mg, administered: 06/09/2016 7:53:00 PM IV NS IV Fluids bolus 0, then 250 mL/hr, administered: 06/09/2016 8:29:00 PM Potassium Chloride [IVPB] IVPB bolus 0, then 20 meq 50 mL/hr, administered: 06/09/2016 8:38:00 PM Morphine [IVP] IVP 4 mg, administered: 06/09/2016 9:20:00 PM Zofran [IVP] IVP 8 mg, administered: 06/09/2016 11:05:00 PM Dilaudid [IVP] IVP 1 mg, administered: 06/09/2016 11:09:00 PM The following Medications were prescribed to the patient: None.
--- NOTE | 2016-06-14 10:44 | ED MED RECONCILIATION SUMMARY ---
Patient: JOSEY MOHAMUD Medication Reconciliation Report [facility] VisitID: [id number] [address] [place] [address] 51y, F Registration Date/Time: 06/09/2016 Weight: 72.5 kg Height/Length: 64 in. BMI: 27.5 ALLERGIES: Codeine The patient's Home Medications are listed below: THE FOLLOWING MEDICATIONS NEED TO BE RECONCILED: Atenolol Oral Suboxone Sublingual The source(s) of the original Home Medication information: patient EMS The following Medications were given to the patient in the Emergency Department: Ativan [IVP] IVP 1 mg, administered: 06/09/2016 7:53:00 PM IV NS IV Fluids bolus 0, then 250 mL/hr, administered: 06/09/2016 8:29:00 PM Potassium Chloride [IVPB] IVPB bolus 0, then 20 meq 50 mL/hr, administered: 06/09/2016 8:38:00 PM Morphine [IVP] IVP 4 mg, administered: 06/09/2016 9:20:00 PM Zofran [IVP] IVP 8 mg, administered: 06/09/2016 11:05:00 PM Dilaudid [IVP] IVP 1 mg, administered: 06/09/2016 11:09:00 PM The following Medications were prescribed to the patient: None.
--- NOTE | 2016-06-14 10:44 | ED DISCHARGE INSTRUCTIONS ---
Patient: JOSEY MOHAMUD General Instructions [facility] VisitID: [id number] [address] [place] [address] 51y, F Registration Date/Time: 06/09/2016 Generalized seizure. History of idiopathic etiology epilepsy. Acute idiopathic pancreatitis. (Electronically signed by Sapphire Vazquez MD 06/14/2016 9:11)
--- NOTE | 2016-06-14 10:44 | ED DISCHARGE INSTRUCTIONS ---
Patient: JOSEY MOHAMUD General Instructions [facility] VisitID: [id number] [address] [place] [address] 51y, F Registration Date/Time: 06/09/2016 Generalized seizure. History of idiopathic etiology epilepsy. Acute idiopathic pancreatitis. (Electronically signed by Sapphire Vazquez MD 06/14/2016 9:11)
--- NOTE | 2016-06-14 13:19 | Progress Note ---
Subjective General Pt seen and examined this morning. Patient complains of persistent pain, however she claims that she has an appetite. Pt told that if her abdomen still hurts that she can not proceed with eating since that would exacerbate her stay. Patient claims she understands. Constitutional Denies: Fever, Chills, Sweats, Weakness, Malaise, Other. Eyes Denies: Pain, Vision Change, Conjunctival Inflammation, Eyelid Inflammation, Redness, Other. ENT Denies: Ear Pain, Ear Discharge, Nose Pain, Nasal Discharge, Nasal Congestion, Mouth Pain, Mouth Swelling, Throat Pain, Throat Swelling, Other. Respiratory Denies: Cough, Dry, SOB w/exertion, Wheezing, Hemoptysis, Pleuritic Pain, Sputum , Other. Cardiovascular Denies: Chest Pain, Palpitations, Orthopnea, PND, Edema, Light-headedness, Other. Gastrointestinal Nausea, Abdominal Pain. Denies: Vomiting, Diarrhea, Constipation, Melena, Hematochezia, Other. Genitourinary Denies: Dysuria, Frequency, Incontinence, Hematuria, Retention, Other. Musculoskeletal Denies: Neck Pain, Shoulder Pain, Arm Pain, Back Pain, Hand Pain, Leg Pain, Foot Pain, Other. Skin Denies: Rash, Lesions, Jaundice, Bruising, Other. Physical Exam Vital Signs / I&Os Vital Signs Date Time Temp Pulse Resp B/P Pulse O2 O2 Flow FiO2 Ox Delivery Rate 06/14 1027 163/93 02/ 1012 98.1 95 20 163/93 98 Room Air 0.0 06/14 0909 0.0 / 0829 88 02/ 0627 98.2 88 20 152/76 94 Room Air 0.0 06/14 0305 139/81 02/06 0210 170/94 02/06 0200 98.2 92 18 170/94 95 Room Air 02/ 2336 151/93 02/05 2257 169/96 02/05 2243 98.8 87 18 169/96 96 Room Air 02/ 1806 98.6 90 17 196/91 96 Room Air 02/ 1730 Room Air 02/ 1509 98.4 83 16 178/93 96 Room Air I&O / 0800 02/05 1600 02/06 0000 Intake Total 1850 1733 1805 Output Total 9851 961 3559 Balance 550 983 -795 General Appearance Alert, Oriented X3, No acute distress HEENT Normal exam, PERRLA, EOMI, Moist mucous membranes Lungs Normal exam, Clear to auscultation, Normal air movement Cardiovascular Regular rate and rhythm, Normal S1 and S2, No murmurs, gallops, rubs Abdomen Normal bowel sounds, Soft, No tenderness, No guarding, No rebound, No masses, No hepatosplenomegaly Extremities No edema, Normal pulses Skin No Rashes Neurological Normal speech, Normal tone Psych/Mental Status Mental status normal, Mood normal LAB Results Laboratory Tests 06/14 06/14 0036 0522 Chemistry Plasma Sodium (136 - 145 mmol/L) 139 Plasma Potassium (3.5 - 5.1 mmol/L) 3.8 Plasma Chloride (98 - 107 mmol/L) 102 CO2 (Enzymatic) (21 - 32 mmol/L) 26 BUN (7 - 18 mg/dL) 5 Creatinine (0.6 - 1.3 mg/dL) 0.5 Est GFR ( Amer) (mL/min) >60 Est GFR (Non-Af Amer) (mL/min) >60 Glucose (70 - 110 mg/dL) 93 Plasma Calcium (8.5 - 10.1 mg/dL) 9.1 Lipase (73 - 393 U/L) 828 Hematology WBC (4.5 - 11.5 K/uL) 5.9 RBC (4.00 - 5.20 M/uL) 3.53 Hgb (12.0 - 16.0 gm/dL) 11.6 Hct (36.0 - 46.0 %) 34.5 MCV (80 - 100 fL) 98 MCH (26 - 34 pg) 33 RDW (11.6 - 14.8 %) 14.4 Neut % (Auto) (50 - 75 %) 60.7 Lymph % (Auto) (25 - 40 %) 23.9 Yell % (Auto) (3 - 14 %) 10.1 Eos % (Auto) (0 - 4 %) 4.1 Baso % (Auto) (0 - 2 %) 1.2 Plt Count, EDTA (150 - 400 K/uL) 151 PUBS MCHC (31 - 37 g/dL) 34 Urines Urine Color YELLOW Urine Appearance CLEAR Urine pH (5.0 - 8.0) 6.0 Ur Specific [place] (1.010 - 1.030) <= 1.005 Urine Protein (NEGATIVE) NEGATIVE Urine Ketones (NEGATIVE) NEGATIVE Urine Blood (NEGATIVE) NEGATIVE Urine Nitrite (NEGATIVE) NEGATIVE Urine Bilirubin (NEGATIVE) NEGATIVE Urine Urobilinogen (0.2 - 1.0 EU/dL) 0.2 Ur Leukocyte Esterase (NEGATIVE) NEGATIVE Urine RBC (0 - 1 rbc/hpf) 0-1 Urine WBC (0 - 1 wbc/hpf) 0-1 Ur Epithelial Cells (0 - 5 EPI/hpf) 0-1 Urine Bacteria (NONE SEEN) NONE SEEN Urine Glucose (NEGATIVE) NEGATIVE Urine Comment CULT NOT INDICATED Assessment and Plan Problem List 1. Pancreatitis Plan - Pt has been seen to have pancreatitis secondary to alcohol abuse - pts lipase has been steadily decreasing since admission - pt urged not to eat to avoid rebound inflammation - titrating down pain medications as tolerated - will continue with slowly advancing diet as tolerated. 2. ETOH abuse Plan - long standing history of alcohol abuse - pt has had questinonable seizure activity while in the ed - not seen while on the floor - c/w [facility] protocol - aggressively hydrate - 3. Alcohol withdrawal Plan - [facility] protocol - monitor for seizure activity - seizure precautions
--- NOTE | 2016-06-14 13:19 | Progress Note ---
Subjective General Pt seen and examined this morning. Patient complains of persistent pain, however she claims that she has an appetite. Pt told that if her abdomen still hurts that she can not proceed with eating since that would exacerbate her stay. Patient claims she understands. Constitutional Denies: Fever, Chills, Sweats, Weakness, Malaise, Other. Eyes Denies: Pain, Vision Change, Conjunctival Inflammation, Eyelid Inflammation, Redness, Other. ENT Denies: Ear Pain, Ear Discharge, Nose Pain, Nasal Discharge, Nasal Congestion, Mouth Pain, Mouth Swelling, Throat Pain, Throat Swelling, Other. Respiratory Denies: Cough, Dry, SOB w/exertion, Wheezing, Hemoptysis, Pleuritic Pain, Sputum , Other. Cardiovascular Denies: Chest Pain, Palpitations, Orthopnea, PND, Edema, Light-headedness, Other. Gastrointestinal Nausea, Abdominal Pain. Denies: Vomiting, Diarrhea, Constipation, Melena, Hematochezia, Other. Genitourinary Denies: Dysuria, Frequency, Incontinence, Hematuria, Retention, Other. Musculoskeletal Denies: Neck Pain, Shoulder Pain, Arm Pain, Back Pain, Hand Pain, Leg Pain, Foot Pain, Other. Skin Denies: Rash, Lesions, Jaundice, Bruising, Other. Physical Exam Vital Signs / I&Os Vital Signs Date Time Temp Pulse Resp B/P Pulse O2 O2 Flow FiO2 Ox Delivery Rate 06/14 1027 163/93 02/ 1012 98.1 95 20 163/93 98 Room Air 0.0 06/14 0909 0.0 / 0829 88 02/ 0627 98.2 88 20 152/76 94 Room Air 0.0 06/14 0305 139/81 02/06 0210 170/94 02/06 0200 98.2 92 18 170/94 95 Room Air 02/ 2336 151/93 02/05 2257 169/96 02/05 2243 98.8 87 18 169/96 96 Room Air 02/ 1806 98.6 90 17 196/91 96 Room Air 02/ 1730 Room Air 02/ 1509 98.4 83 16 178/93 96 Room Air I&O / 0800 02/05 1600 02/06 0000 Intake Total 1850 1733 1805 Output Total 0520 847 7617 Balance 550 983 -795 General Appearance Alert, Oriented X3, No acute distress HEENT Normal exam, PERRLA, EOMI, Moist mucous membranes Lungs Normal exam, Clear to auscultation, Normal air movement Cardiovascular Regular rate and rhythm, Normal S1 and S2, No murmurs, gallops, rubs Abdomen Normal bowel sounds, Soft, No tenderness, No guarding, No rebound, No masses, No hepatosplenomegaly Extremities No edema, Normal pulses Skin No Rashes Neurological Normal speech, Normal tone Psych/Mental Status Mental status normal, Mood normal LAB Results Laboratory Tests 06/14 06/14 0036 0522 Chemistry Plasma Sodium (136 - 145 mmol/L) 139 Plasma Potassium (3.5 - 5.1 mmol/L) 3.8 Plasma Chloride (98 - 107 mmol/L) 102 CO2 (Enzymatic) (21 - 32 mmol/L) 26 BUN (7 - 18 mg/dL) 5 Creatinine (0.6 - 1.3 mg/dL) 0.5 Est GFR ( Amer) (mL/min) >60 Est GFR (Non-Af Amer) (mL/min) >60 Glucose (70 - 110 mg/dL) 93 Plasma Calcium (8.5 - 10.1 mg/dL) 9.1 Lipase (73 - 393 U/L) 828 Hematology WBC (4.5 - 11.5 K/uL) 5.9 RBC (4.00 - 5.20 M/uL) 3.53 Hgb (12.0 - 16.0 gm/dL) 11.6 Hct (36.0 - 46.0 %) 34.5 MCV (80 - 100 fL) 98 MCH (26 - 34 pg) 33 RDW (11.6 - 14.8 %) 14.4 Neut % (Auto) (50 - 75 %) 60.7 Lymph % (Auto) (25 - 40 %) 23.9 [place] % (Auto) (3 - 14 %) 10.1 Eos % (Auto) (0 - 4 %) 4.1 Baso % (Auto) (0 - 2 %) 1.2 Plt Count, EDTA (150 - 400 K/uL) 151 PUBS MCHC (31 - 37 g/dL) 34 Urines Urine Color YELLOW Urine Appearance CLEAR Urine pH (5.0 - 8.0) 6.0 Ur Specific [place] (1.010 - 1.030) <= 1.005 Urine Protein (NEGATIVE) NEGATIVE Urine Ketones (NEGATIVE) NEGATIVE Urine Blood (NEGATIVE) NEGATIVE Urine Nitrite (NEGATIVE) NEGATIVE Urine Bilirubin (NEGATIVE) NEGATIVE Urine Urobilinogen (0.2 - 1.0 EU/dL) 0.2 Ur Leukocyte Esterase (NEGATIVE) NEGATIVE Urine RBC (0 - 1 rbc/hpf) 0-1 Urine WBC (0 - 1 wbc/hpf) 0-1 Ur Epithelial Cells (0 - 5 EPI/hpf) 0-1 Urine Bacteria (NONE SEEN) NONE SEEN Urine Glucose (NEGATIVE) NEGATIVE Urine Comment CULT NOT INDICATED Assessment and Plan Problem List 1. Pancreatitis Plan - Pt has been seen to have pancreatitis secondary to alcohol abuse - pts lipase has been steadily decreasing since admission - pt urged not to eat to avoid rebound inflammation - titrating down pain medications as tolerated - will continue with slowly advancing diet as tolerated. 2. ETOH abuse Plan - long standing history of alcohol abuse - pt has had questinonable seizure activity while in the ed - not seen while on the floor - c/w [facility] protocol - aggressively hydrate - 3. Alcohol withdrawal Plan - [facility] protocol - monitor for seizure activity - seizure precautions
--- NOTE | 2016-06-14 14:33 | DIAGNOSTIC IMAGING REPORT ---
PROCEDURE: US ECHOCARDIOGRAM INDICATION: Heart murmur TECHNIQUE: Fair COMPARISON: None. FINDINGS: I. Chambers: Left atrium is normal in size. Left atrial dimension is 30 mm. Left ventricle is normal in size. Left ventricular end-diastolic dimension is 43 mm and the left ventricular end-systolic dimension is 27 mm. There are no regional wall motion abnormalities identified. Left ventricular junction fraction is 55-60%. Borderline left ventricular hypertrophy is noted. Intraventricular septum and the posterior wall both measure 11 mm in thickness. Right ventricle and right atrium appear normal. II. Valves: All of the valves appear normal in morphology. There is no evidence of mitral valve prolapse. There is no evidence of aortic valve stenosis. Color Doppler interrogation reveals trace mitral regurgitation, trace tricuspid regurgitation and trace pulmonic insufficiency. Peak RV systolic pressure is normal at 33 mmHg. III. Diastolic function: Mild, grade 1, diastolic dysfunction is noted. IV. Miscellaneous: Possible small patent foramen ovale [id number] shunting is noted. There is no pericardial effusion. Ascending aorta is normal in size at 3.1 cm. IMPRESSION: 1. Normal left ventricular size and function. LVEF 55-60%. 2. Borderline left ventricular hypertrophy. 3. Mild, grade 1, diastolic dysfunction. 4. No significant valvular abnormalities. 5. Possible small PFO (patent foramen ovale.)
[2016-06-15] VITALS (11 sets, daily range): BP systolic 154–193; BP diastolic 73–104
--- NOTE | 2016-06-15 17:39 | Progress Note ---
Subjective General Pt still having persistent nausea and abdominal pain, patients lipase is decreasing slightly however pt is still symptomatic Constitutional Malaise. Denies: Fever, Chills, Sweats, Weakness, Other. Respiratory Denies: Cough, Dry, SOB w/exertion, Wheezing, Hemoptysis, Pleuritic Pain, Sputum , Other. Cardiovascular Denies: Chest Pain, Palpitations, Orthopnea, PND, Edema, Light-headedness, Other. Gastrointestinal Nausea, Abdominal Pain. Denies: Vomiting, Diarrhea, Constipation, Melena, Hematochezia, Other. Genitourinary Denies: Dysuria, Frequency, Incontinence, Hematuria, Retention, Other. Musculoskeletal Denies: Neck Pain, Shoulder Pain, Arm Pain, Back Pain, Hand Pain, Leg Pain, Foot Pain, Other. Skin Denies: Rash, Lesions, Jaundice, Bruising, Other. Physical Exam Vital Signs / I&Os Vital Signs Date Time Temp Pulse Resp B/P Pulse O2 O2 Flow FiO2 Ox Delivery Rate 06/15 1816 98.1 184/104 06/15 1600 Room Air 06/15 1410 98.6 71 20 174/102 98 Room Air 0.0 06/15 1031 98.2 72 20 154/85 97 Room Air 0.0 06/15 0912 154/91 06/15 0911 70 154/91 06/15 0814 78 173/99 06/15 0813 78 06/15 0629 98.4 71 20 193/99 98 Room Air 0.0 06/15 0254 98.2 80 18 162/101 98 Room Air 06/14 2201 98.4 73 18 184/100 99 Room Air I&O 06/14 0800 06/14 1600 06/15 0000 Intake Total 2245 240 Output Total 1900 1800 500 Balance 345 -1560 -500 General Appearance Alert, Oriented X3, Cooperative, No acute distress HEENT Normal exam, PERRLA, EOMI, Moist mucous membranes Lungs Clear to auscultation, Normal air movement Cardiovascular Regular rate and rhythm, Normal S1 and S2 Abdomen Normal bowel sounds, Soft, -tenderness to palpation Extremities Normal exam, No clubbing, No edema Skin No Rashes Neurological Normal speech, Normal tone Psych/Mental Status Mental status normal, Mood normal LAB Results Laboratory Tests 06/15 0510 Chemistry Plasma Sodium (136 - 145 mmol/L) 144 Plasma Potassium (3.5 - 5.1 mmol/L) 4.0 Plasma Chloride (98 - 107 mmol/L) 105 CO2 (Enzymatic) (21 - 32 mmol/L) 26 BUN (7 - 18 mg/dL) 7 Creatinine (0.6 - 1.3 mg/dL) 0.5 Est GFR ( Amer) (mL/min) >60 Est GFR (Non-Af Amer) (mL/min) >60 Glucose (70 - 110 mg/dL) 81 Plasma Calcium (8.5 - 10.1 mg/dL) 9.2 Total Bilirubin (0.0 - 1.0 mg/dL) 0.4 AST (15 - 37 U/L) 27 ALT (12 - 78 U/L) 28 Alkaline Phosphatase (46 - 116 U/L) 78 Total Protein (6.4 - 8.2 g/dL) 6.5 Albumin (3.3 - 5.0 g/dL) 3.6 Lipase (73 - 393 U/L) 714 Assessment and Plan Problem List 1. Pancreatitis Plan - will continue to trend lipase - pain control - npo - aggressive hydration 2. Hypertension Plan - pt has very labile hypertension - under control while on medication - will continue with the same meds for now 3. Systolic murmur Plan - present on exam, incidental finding - echo is normal
[2016-06-16] VITALS (9 sets, daily range): BP systolic 155–208; BP diastolic 84–113
--- NOTE | 2016-06-16 14:38 | Progress Note ---
Subjective General Pt seen and examined this morning. Patient has less pain and is willing to try a diet. Patient is asking for pain medication more frequently than yesterday. Patient is otherwise stable. Constitutional Denies: Fever, Chills, Sweats, Weakness, Malaise, Other. Eyes Denies: Pain, Vision Change, Conjunctival Inflammation, Eyelid Inflammation, Redness, Other. ENT Denies: Ear Pain, Ear Discharge, Nose Pain, Nasal Discharge, Nasal Congestion, Mouth Pain, Mouth Swelling, Throat Pain, Throat Swelling, Other. Respiratory Denies: Cough, Dry, SOB w/exertion, Wheezing, Hemoptysis, Pleuritic Pain, Sputum , Other. Cardiovascular Denies: Chest Pain, Palpitations, Orthopnea, PND, Edema, Light-headedness, Other. Gastrointestinal Nausea, Abdominal Pain. Denies: Vomiting, Diarrhea, Constipation, Melena, Hematochezia, Other. Genitourinary Denies: Dysuria, Frequency, Incontinence, Hematuria, Retention, Other. Musculoskeletal Denies: Neck Pain, Shoulder Pain, Arm Pain, Back Pain, Hand Pain, Leg Pain, Foot Pain, Other. Physical Exam Vital Signs / I&Os Vital Signs Date Time Temp Pulse Resp B/P Pulse O2 O2 Flow FiO2 Ox Delivery Rate 06/16 1012 98.4 65 15 155/86 99 Room Air 06/16 0823 80 06/16 0647 97.9 67 16 155/87 97 Room Air 06/16 0417 97.9 68 16 177/93 99 Room Air 06/16 0015 98.2 75 16 155/85 99 Room Air 06/15 2216 71 166/98 06/15 2133 71 16 173/97 98 Room Air 06/15 2002 171/99 06/15 1931 79 18 185/101 99 Room Air 06/15 1816 98.1 184/104 06/15 1600 Room Air I&O 06/15 0800 06/15 1600 06/16 0000 Intake Total 3503 2804 Output Total 825 400 Balance 2678 -400 2804 General Appearance Alert, Oriented X3, No acute distress HEENT Atraumatic, PERRLA, Moist mucous membranes Lungs Clear to auscultation, Normal air movement Neck No JVD Cardiovascular Regular rate and rhythm, Normal S1 and S2 Abdomen No tenderness, No guarding, No rebound Rectal No masses, No hemorrhoids, Normal prostate Skin No Rashes Neurological Normal speech, Normal tone LAB Results Laboratory Tests 06/16 514 Chemistry Plasma Sodium (136 - 145 mmol/L) 142 Plasma Potassium (3.5 - 5.1 mmol/L) 3.8 Plasma Chloride (98 - 107 mmol/L) 104 CO2 (Enzymatic) (21 - 32 mmol/L) 22 BUN (7 - 18 mg/dL) 7 Creatinine (0.6 - 1.3 mg/dL) 0.6 Est GFR ( Amer) (mL/min) >60 Est GFR (Non-Af Amer) (mL/min) >60 Glucose (70 - 110 mg/dL) 56 Plasma Calcium (8.5 - 10.1 mg/dL) 8.6 Total Bilirubin (0.0 - 1.0 mg/dL) 0.4 AST (15 - 37 U/L) 17 ALT (12 - 78 U/L) 25 Alkaline Phosphatase (46 - 116 U/L) 71 Total Protein (6.4 - 8.2 g/dL) 6.0 Albumin (3.3 - 5.0 g/dL) 3.3 Lipase (73 - 393 U/L) 433 Assessment and Plan Problem List 1. Pancreatitis Plan - improving daily - lipase is trending downward appropriately - will attempt clear liquids this afternoon - will titrate down pain medication 2. Substance abuse Plan - pt has a history of alcoholism - pt was explained that overuse of opiods can potentially lengthen her stay and prove to be habit forming - pt understands and will use pain meds judiciously 3. Systolic murmur Plan - no valve defects noted - no further testing warranted 4. Hypertension Plan - well controlled this am - will continue with home meds
[2016-06-17] VITALS (9 sets, daily range): BP systolic 145–196; BP diastolic 78–105
--- NOTE | 2016-06-17 18:25 | Progress Note ---
Subjective General Patient seen and examined. Patient is having persistent abdominal pain when she eats. Additionally patients lipase has increased very slightly since the day prior after starting a diet. Patient otherwise is stable. Constitutional Denies: Fever, Chills, Sweats, Weakness, Malaise, Other. ENT Denies: Ear Pain, Ear Discharge, Nose Pain, Nasal Discharge, Nasal Congestion, Mouth Pain, Mouth Swelling, Throat Pain, Throat Swelling, Other. Respiratory Denies: Cough, Dry, SOB w/exertion, Wheezing, Hemoptysis, Pleuritic Pain, Sputum , Other. Cardiovascular Denies: Chest Pain, Palpitations, Orthopnea, PND, Edema, Light-headedness, Other. Gastrointestinal Nausea, Abdominal Pain. Denies: Vomiting, Diarrhea, Constipation, Melena, Hematochezia, Other. Genitourinary Denies: Dysuria, Frequency, Incontinence, Hematuria, Retention, Other. Musculoskeletal Denies: Neck Pain, Shoulder Pain, Arm Pain, Back Pain, Hand Pain, Leg Pain, Foot Pain, Other. Skin Denies: Rash, Lesions, Jaundice, Bruising, Other. Physical Exam Vital Signs / I&Os Vital Signs Date Time Temp Pulse Resp B/P Pulse O2 O2 Flow FiO2 Ox Delivery Rate 06/17 1712 145/88 06/17 1618 98.1 63 16 173/100 97 Room Air 0.0 06/17 1555 Room Air 0.0 06/17 1138 180/98 06/17 1121 98.2 60 16 180/87 100 Room Air 06/17 0855 Room Air 0.0 06/17 0850 78 06/17 0637 97.9 64 17 186/95 97 Room Air 06/17 0510 98.4 64 18 192/105 99 Room Air 06/17 0241 97.7 61 16 196/101 100 Room Air 06/17 0002 65 188/103 99 06/16 2336 69 208/113 06/16 2333 Room Air 06/16 2240 98.1 66 16 186/99 99 Room Air 06/16 1910 199/99 02/ 1833 67 16 198/99 99 Room Air I&O 06/16 0800 / 1600 06/17 0000 Intake Total 1684 1518 450 Output Total 850 300 775 Balance 834 1218 -325 General Appearance Alert, Oriented X3, No acute distress HEENT Atraumatic, PERRLA, Moist mucous membranes Lungs Clear to auscultation Cardiovascular Regular rate and rhythm, Normal S1 and S2 Abdomen Normal bowel sounds, Soft, -tenderness to palpation Skin No Rashes Psych/Mental Status Mental status normal LAB Results Laboratory Tests 06/17 05 Chemistry Plasma Sodium (136 - 145 mmol/L) 142 Plasma Potassium (3.5 - 5.1 mmol/L) 3.3 Plasma Chloride (98 - 107 mmol/L) 103 CO2 (Enzymatic) (21 - 32 mmol/L) 23 BUN (7 - 18 mg/dL) 6 Creatinine (0.6 - 1.3 mg/dL) 0.6 Est GFR ( Amer) (mL/min) >60 Est GFR (Non-Af Amer) (mL/min) >60 Glucose (70 - 110 mg/dL) 107 Plasma Calcium (8.5 - 10.1 mg/dL) 9.0 Total Bilirubin (0.0 - 1.0 mg/dL) 0.4 AST (15 - 37 U/L) 24 ALT (12 - 78 U/L) 30 Alkaline Phosphatase (46 - 116 U/L) 78 Total Protein (6.4 - 8.2 g/dL) 7.0 Albumin (3.3 - 5.0 g/dL) 3.8 Lipase (73 - 393 U/L) 501 Assessment and Plan Problem List 1. Pancreatitis Plan - pts lipase stagnated slightly since resuming a diet yesterday - pt is having continual abdominal pain which is keeping her from eating - will keep pt npo - will obtain am lipase - will retry diet tomorrow 2. Substance abuse Plan - pt has an ongoing history of substance abuse - pt vehemently denies any substance abuse history in the recent past but does not have an explanation for why she is suboxone - will titrate down pain medication due to possible abuse - will discuss with patient 3. ETOH abuse Plan - pt had a seizure on a arrival - pt has not had any withdrawal symptoms in the past week 4. Hypertension Plan - Pt has been having elevated blood pressure periodically throughout the day - Pt currently on clonidine, lisinopril, atenolol - will add hydralazine for better control - will continually monitor - pt has had elevation in bp close to the time medication is due
[2016-06-18 02:51] VITALS: BP 138/88
[2016-06-18 07:01] VITALS: BP 149/91
[2016-06-18 11:00] VITALS: BP 125/95
[2016-06-18] MEDS ORDERED: CLONIDINE HCL0.1 MG PO (13:16)
[2016-06-18] MEDS ORDERED: LISINOPRIL10 MG PO (13:16)
--- NOTE | 2016-06-18 13:19 | Discharge Summary ---
Discharge Summary Report Admit Date 06/09/16 Discharge Date 06/18/16 Admission Diagnosis pancreatitis, alcohol abuse Discharge Diagnosis pancreatitis Brief History This is a 51-year-old female, previously admitted for alcoholic pancreatitis, who states that she quit drinking 3 months ago, presenting to the hospital after her found her foaming at the mouth and with urinary incontinence after 3 days of progressively worsening abdominal pain, vomiting, headaches and diarrhea. The patient states that she has not drunk any alcohol in 3 months. During her last hospitalization, she did also claim that she did not drink alcohol at all; however, her stated that he found empty alcohol bottles lying around the house, despite never seeing her drinking. During this hospitalization, she went through withdrawals. The patient states that approximately 2-3 days ago she started having abdominal pain , initially vomiting, which then turned into dry heaving and a headache. She also been having watery diarrhea several times a day. No hematochezia or melena. Her abdominal pain is epigastric and left upper quadrant. It has been getting progressively worse over the last couple of days. On the evening of admission, her found her lying on the floor, foaming at the mouth and with urinary incontinence. She claims he did not visualize any tonic-clonic motion. Hospital Course Patient is a 51 year old female presenting with pancreatitis. Patient had been admitted to hospital for the same thing in the past. Patient initially on presentation was seen to develop a seizure and was subsequently treated conservatively. Patient was seen to have elevated lipase and abdominal pain however patient vehemently denied that she was drinking. Patient has had the same presentation in the past but it was found that she was not being truthful in the past. Patient did not go through true withdrawal symptoms but rather she was flushed and tremulous for two days but claimed it was secondary to being sick. Additionally it was noted that the patient was on suboxone, which the patient claimed was for restless leg syndrome, however on further investigation it was found to be in treatment for opioid abuse. Lastly throughout her admission patient had difficult to control blood pressure. Patient was started on her home meds but required the use of additionall agents to control her blood pressure well. Patient was treated with npo status and liveral use of iv fluids. Patients pain was apporpriately being covered with opioid pain medications and patient was explained to use the medicatin prudently and only ask for it when in pain. Patients lipase trended down and she was able to tolerate a diet. Patients liapse normalized and she was able to tolerate a diet without much difficulty. It was at this time when it was decided to discharge the patient. General Appearance Alert, Oriented X3, No acute distress Lungs Clear to auscultation, Normal air movement Cardiovascular Normal S1, Normal S2, No murmurs, Rubs Abdomen Soft, No tenderness Neurological Normal speech, Normal tone, Sensation intact, Cranial nerves 3-12 NL Discharge Instructions/Meds - take home medications as prescribed - follow up with a primary care doctor - advance your diet slowly over the course of the next week, and please go slowly to avoid worsening pain
--- NOTE | 2016-06-18 13:19 | Provider's Discharge Care Plan ---
Problem, Goal, Plan Problem List 1. Pancreatitis Instructions: - gradually advance diet, if uneasiness or pain returns. decrease the amount you consume 2. Hypertension Instructions: - your blood pressure was elevated periodically througout your admission, please take medication as prescribed, and follow up with your pmd within two weeks 3. Systolic murmur Instructions: - echo did not reveal anything, no further managment required
[2016-06-18 14:53] VITALS: BP 154/90
[2016-06-18] MEDS ORDERED: VICODIN EQUIVAL1 TAB PO (15:14)
== END 2016-06-18 15:35 | disposition home or self-care (01) | DRG 439 ==
LOC: ED SRH 19:24 → TRANS SRH 23:12 → ACUTE2 SRH 23:12 → TRANS SRH 23:12 → ACUTE2 SRH 23:12
PROVIDERS: ADMIT Family Medicine
DX: K85.20 Alcohol induced acute pancreatitis without necrosis or infection (principal); R11.2 Nausea with vomiting, unspecified; F10.239 Alcohol dependence with withdrawal, unspecified; G40.509 Epileptic seizures related to external causes, not intractable, without status epilepticus; E83.42 Hypomagnesemia; E87.6 Hypokalemia; F11.20 Opioid dependence, uncomplicated; I10 Essential (primary) hypertension; K21.9 Gastro-esophageal reflux disease without esophagitis; F32.9 Major depressive disorder, single episode, unspecified

== ENCOUNTER 2016-07-14 18:43 | Emergency (ER) | payer BC ==
[~2016-07-14 18:43] MED LIST changes: +CLONIDINE HCL0.1 MG PO; +VICODIN EQUIVAL1 TAB PO
--- NOTE | 2016-07-15 02:37 | ED NURSING NOTES ---
Clinical Report - Nurses [place] [address] [place] [address] 07/14/2016 18:42 Patient: JOSEY MOHAMUD TRIAGE Triage time 18:49. Acuity: LEVEL 3. Chief Complaint: (Hypertension getting worse over the past several days. Left chest pain from her shoulder to below her left breast, no change with palp, worse with deep breathing. Also c/o nausea, and SOB. Denies diaphoresis.). 19:00 07/14/16. BRE COMA SCORE: Bre Coma Scale: 15- eyes open spontaneously (4); best verbal response- oriented x 4 (5); best motor response- obeys commands (6). --19:01 Jean Pierre Mondragon R.N. 18:49 07/14/16. BP: 183/97. HR: 79. RR: 20. O2 saturation: 98% on room air. Temp: 98.8 F (oral). Pain level now: 10/16. --19:01 Jean Pierre Mondragon R.N. Weight: 69.3 kg stated. Height/Length: 64 inches Per Patient. BMI: 26.2. --18:58 Jean Pierre Mondragon R.N. Medications Atenolol Oral (Tablet 25 mg) 1 tablet, daily. Suboxone Sublingual. --18:57 Jean Pierre Mondragon R.N. Lisinopril Oral (Tablet 10 mg) 2 tablets, daily. --18:57 Jean Pierre Mondragon R.N. CloNIDine HCl Oral (Tablet 0.1 mg) 1 tablet, 3x a day. --18:57 Jean Pierre Mondragon R.N. Allergies Codeine. --18:52 Jean Pierre Mondragon R.N. History Arrived by private vehicle. Historian: patient. Accompanied by family. SOCIAL HX: Light tobacco smoker (cigarette)- less than 1/2 a pack per day. No alcohol use or drug use. ABUSE ASSESSMENT: No report of abuse. --19:01 Jean Pierre Mondragon R.N. PROBLEMS: Pancreatitis. Hypertension. Seizure Disorder. Status Epilepticus. Chest Pain. Laceration. Immunizations. Substance Abuse. --18:58 Jean Pierre Mondragon R.N. ADDITIONAL SURGERIES: Appendectomy. Thoracic outlet surgery. --18:59 Jean Pierre Mondragon R.N. Interventions ID band on patient. To treatment room. --19:01 Jean Pierre Mondragon R.N. PHYSICAL ASSESSMENT 19:05 07/14/16. Ambulatory to room. GENERAL / NEURO / PSYCH: Alert. Oriented X 4. Appears in pain and anxious. HEENT: Pupils equal, round and reactive to light. No facial asymmetry noted. Mucous membranes are pink. RESPIRATORY: Respirations not labored. Left upper, mid- and anterior chest wall tenderness. The tenderness is well-localized. Breath sounds within normal limits. CVS: Normal sinus rhythm noted. Cardiac rhythm: normal sinus rhythm. Capillary refill less than 2 seconds. Pulses within normal limits. GI / : Abdomen soft and nontender and normal bowel sounds. SKIN: Skin is warm and dry. Normal skin turgor. --19:07 Jean Pierre Mondragon R.N. NURSING PROGRESS NOTES 19:07 07/14/16. Cardiac rhythm: normal sinus rhythm. 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 Patient gowned. Head of bed elevated. Reassurance given. Two patient identifiers checked. Call light placed in reach. Bed placed in lowest position. Brakes of bed on. Patient ready for evaluation- chart flagged. ( at the bedside). --19:08 Jean Pierre Mondragon R.N. 19:07/14/16. Care transferred and report given (PADMA Smith). --19:09 Jean Pierre Mondragon R.N. EKG time: (1913). EKG was ordered, performed by a tech and shown to the ED physician. --19:15 Stevo Farmer, ER Billet Shearer 19:37 07/14/2016 Clonidine Topical Patch/Pad 0.2 mg. Applied to the right chest. Allergies verified and confirmed 5 rights. --19:38 Shelly Sampson R.N. 19:40 07/14/16. BP: 151/91. HR: 70. RR: 13. O2 saturation: 90%. 19:30 07/14/16. BP: 144/100. HR: 72. RR: 17. O2 saturation: 96%. 19:15 07/14/16. BP: 144/84. HR: 71. RR: 13. O2 saturation: 96%. 19:00 07/14/16. BP: 161/84. HR: 73. RR: 17. O2 saturation: 97%. --20:10 Shelly Sampson R.N. DISPOSITION / DISCHARGE Departure time: 20:56 Jul 14 2016. Condition at departure: improved. No learning barriers present. Discharge instructions provided and reviewed with the patient. Reviewed warnings. Reviewed medication(s). Treatments reviewed. Reviewed referrals. Patient verbalized understanding. Written instructions provided in [place]. The patient was discharged home and accompanied by spouse. She left the Emergency Department ambulatory and via private vehicle. Spouse driving. --20:56 Shelly Sampson R.N. 20:30 07/14/16. BP: 157/88. HR: 74. RR: 19. O2 saturation: 94%. Temp: 98.6 F. --20:56 Shelly Sampson R.N. 21:02 07/14/16. Pain level now 06/18. --21:02 Shelly Sampson R.N. Locked/Released at 07/15/2016 6:21 by Shelly Sampson R.N.
--- NOTE | 2016-07-15 02:37 | ED ORDER SUMMARY ---
..... 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 (06:21 07/15/2016)] [Electronically signed by Braden Gutierrez MD (19:10 07/16/2016)] [Electronically locked/signed by Shelly Sampson R.N. (06:21 07/15/2016)]
--- NOTE | 2016-07-15 02:37 | ED NURSING NOTES ---
Clinical Report - Nurses [place] [address] [place] [address] 07/14/2016 18:42 Patient: JOSEY MOHAMUD TRIAGE Triage time 18:49. Acuity: LEVEL 3. Chief Complaint: (Hypertension getting worse over the past several days. Left chest pain from her shoulder to below her left breast, no change with palp, worse with deep breathing. Also c/o nausea, and SOB. Denies diaphoresis.). 19:00 07/14/16. RBE COMA SCORE: Bre Coma Scale: 15- eyes open spontaneously (4); best verbal response- oriented x 4 (5); best motor response- obeys commands (6). --19:01 Jean Pierre Mondragon R.N. 18:49 07/14/16. BP: 183/97. HR: 79. RR: 20. O2 saturation: 98% on room air. Temp: 98.8 F (oral). Pain level now: 10/16. --19:01 Jean Pierre Mondragon R.N. Weight: 69.3 kg stated. Height/Length: 64 inches Per Patient. BMI: 26.2. --18:58 Jean Pierre Mondragon R.N. Medications Atenolol Oral (Tablet 25 mg) 1 tablet, daily. Suboxone Sublingual. --18:57 Jean Pierre Mondragon R.N. Lisinopril Oral (Tablet 10 mg) 2 tablets, daily. --18:57 Jean Pierre Mondragon R.N. CloNIDine HCl Oral (Tablet 0.1 mg) 1 tablet, 3x a day. --18:57 Jean Pierre Mondragon R.N. Allergies Codeine. --18:52 Jean Pierre Mondragon R.N. History Arrived by private vehicle. Historian: patient. Accompanied by family. SOCIAL HX: Light tobacco smoker (cigarette)- less than 1/2 a pack per day. No alcohol use or drug use. ABUSE ASSESSMENT: No report of abuse. --19:01 Jean Pierre Mondragon R.N. PROBLEMS: Pancreatitis. Hypertension. Seizure Disorder. Status Epilepticus. Chest Pain. Laceration. Immunizations. Substance Abuse. --18:58 Jean Pierre Mondragon R.N. ADDITIONAL SURGERIES: Appendectomy. Thoracic outlet surgery. --18:59 Jean Pierre Mondragon R.N. Interventions ID band on patient. To treatment room. --19:01 Jean Pierre Mondragon R.N. PHYSICAL ASSESSMENT 19:05 07/14/16. Ambulatory to room. GENERAL / NEURO / PSYCH: Alert. Oriented X 4. Appears in pain and anxious. HEENT: Pupils equal, round and reactive to light. No facial asymmetry noted. Mucous membranes are pink. RESPIRATORY: Respirations not labored. Left upper, mid- and anterior chest wall tenderness. The tenderness is well-localized. Breath sounds within normal limits. CVS: Normal sinus rhythm noted. Cardiac rhythm: normal sinus rhythm. Capillary refill less than 2 seconds. Pulses within normal limits. GI / : Abdomen soft and nontender and normal bowel sounds. SKIN: Skin is warm and dry. Normal skin turgor. --19:07 Jean Pierre Mondragon R.N. NURSING PROGRESS NOTES 19:07 07/14/16. Cardiac rhythm: normal sinus rhythm. conveyor monitor, pulse oximeter and NIBP monitor placed on patient; traffic monitor specialist- Lead II and aVR; monitor alarms on. Patient gowned. Head of bed elevated. Reassurance given. Two patient identifiers checked. Call light placed in reach. Bed placed in lowest position. Brakes of bed on. Patient ready for evaluation- chart flagged. ( at the bedside). --19:08 Jean Pierre Mondragon R.N. 19:07/14/16. Care transferred and report given (PADMA Smith). --19:09 Jean Pierre Mondragon R.N. EKG time: (1913). EKG was ordered, performed by a tech and shown to the ED physician. --19:15 Stevo Farmer, ER Delinquent Tax Collector Assistant 19:37 07/14/2016 Clonidine Topical Patch/Pad 0.2 mg. Applied to the right chest. Allergies verified and confirmed 5 rights. --19:38 Shelly Sampson R.N. 19:40 07/14/16. BP: 151/91. HR: 70. RR: 13. O2 saturation: 90%. 19:30 07/14/16. BP: 144/100. HR: 72. RR: 17. O2 saturation: 96%. 19:15 07/14/16. BP: 144/84. HR: 71. RR: 13. O2 saturation: 96%. 19:00 07/14/16. BP: 161/84. HR: 73. RR: 17. O2 saturation: 97%. --20:10 Shelly Sampson R.N. DISPOSITION / DISCHARGE Departure time: 20:56 Jul 14 2016. Condition at departure: improved. No learning barriers present. Discharge instructions provided and reviewed with the patient. Reviewed warnings. Reviewed medication(s). Treatments reviewed. Reviewed referrals. Patient verbalized understanding. Written instructions provided in Lao. The patient was discharged home and accompanied by spouse. She left the Emergency Department ambulatory and via private vehicle. Spouse driving. --20:56 Shelly Sampson R.N. 20:30 07/14/16. BP: 157/88. HR: 74. RR: 19. O2 saturation: 94%. Temp: 98.6 F. --20:56 Shelly Sampson R.N. 21:02 07/14/16. Pain level now 06/18. --21:02 Shelly Sampson R.N. Locked/Released at 07/15/2016 6:21 by Shelly Sampson R.N.
--- NOTE | 2016-07-15 02:37 | ED CLINICAL REPORT ---
Clinical Report - Physicians/Mid Levels [facility] [address] [place] [address] 07/14/2016 18:42 Patient: JOSEY MOHAMUD Time Seen: 18:49 Jul 14 2016. Arrived- By private vehicle. Historian- patient. CPT: ER phys charges level 4 plus (#[id number]). EKG interpretation (#[id number]). HISTORY OF PRESENT ILLNESS Chief Complaint: High BP. ( Hypertension getting worse over the past several days. Left chest pain from her shoulder to below her left breast, no change with palp, worse with deep breathing. Also c/o nausea, and SOB. Denies diaphoresis.).). This started today and is still present. At its maximum, severity described as moderate. When seen in the E.D., severity described as moderate. Modifying factors. Not worsened by anything. Not relieved by anything. No current or associated symptoms. Similar symptoms previously: As bad. Diagnosis: (HTN). Recent medical care: Not recently seen/assessed. REVIEW OF SYSTEMS No fever, sore throat, sinus drainage, nasal congestion or cough. No difficulty breathing, abdominal pain, nausea, vomiting or diarrhea. No black stools, bloody stools, chills, difficulty with urination or skin rash. No back pain, headache, blackouts or double vision. The patient has had mild, pressure-like central chest pain (Transient for a few minutes. Resolved now.). No difficulty with ambulation. All systems otherwise negative, except as recorded above. PAST HISTORY Pancreatitis. Hypertension. Seizure Disorder. Status Epilepticus. Chest Pain. Laceration. Immunizations. Substance Abuse. ADDITIONAL SURGERIES: Appendectomy. Thoracic outlet surgery. Medications: CloNIDine HCl Oral (Tablet 0.1 mg) 1 tablet, 3x a day. Lisinopril Oral (Tablet 10 mg) 2 tablets, daily. Atenolol Oral (Tablet 25 mg) 1 tablet, daily. Suboxone Sublingual. Allergies: Codeine. SOCIAL HISTORY Heavy tobacco smoker (cigarette)- less than 1 pack per day. No alcohol use or drug use. ADDITIONAL NOTES The nursing notes have been reviewed. PHYSICAL EXAM Vital Signs: 07/14/2016 18:49 BP: 183/97. HR: 79. RR: 20. O2 saturation: 98%. Temp: 98.8 F. Pain level now: 10/16. Appearance: Alert. Anxious. Patient in mild distress. Eyes: Eyes normal inspection. ENT: Pharynx normal. Neck: Normal inspection. Neck supple. CVS: Normal heart rate and rhythm. Heart sounds normal. Pulses normal. Respiratory: No respiratory distress. Breath sounds normal. (Chest , under left breast, is positive for palpation tenderness that reproduces the CP.). Abdomen: No visible injury. Soft and nontender. Skin: Skin warm. Normal skin color. Extremities: Extremities exhibit normal ROM. No calf tenderness. No lower extremity edema. Neuro: Oriented X 3. No motor deficit. No sensory deficit. Reflexes normal. PROGRESS AND PROCEDURES Course of Care: Pt admitted a month ago for pancreatitis and clonidine was added to control BP. Pt discharged with this medication in addition to her usual 2 other BP meds. Her PCP reduced clonidine and was trying to taper the patient off when the BP started to spike out of control again. Pt has a lot of stress in her life and this may be adding to the problem. Pt was admitted here 06-09-16 for pancreatitis and seizure. She had CBC and Chem 12 that were essentially normal so these will not be repeated today. Pt has not history of a high T4, cushings, diabetes or RHETT. Pt had good control on the clonidine until it was tapered. Will place 0.2 mg clonidine patch and have her follow up in the next week. BP now stable. Patient/family counseled. Disposition: Discharged. Condition: stable. CLINICAL IMPRESSION Uncontrolled essential hypertension. INSTRUCTIONS No strenuous activity. Rest. Avoid salty foods. (Leave clonidine patch on for up to 1 week. Avoid caffeine and cold medications for now. Decrease as many stressors as possible.). Warnings: Further evaluation is necessary. GENERAL WARNINGS: Return or contact your physician immediately if your condition worsens or changes unexpectedly, if not improving as expected, or if other problems arise. Your Current Medications: STOP TAKING THE FOLLOWING MEDICATIONS: CloNIDine HCl Oral : Tablet 0.1 mg, 1 tablet 3x a day. CONTINUE TAKING THE FOLLOWING MEDICATIONS: Atenolol Oral : Tablet 25 mg, 1 tablet daily. Lisinopril Oral : Tablet 10 mg, 2 tablets daily. Suboxone Sublingual. Follow-up: Follow up with your doctor in one week. Call for an appointment. Understanding of the discharge instructions verbalized by patient. (Electronically signed by Braden Gutierrez MD 07/16/2016 19:10)
--- NOTE | 2016-07-15 02:37 | ED ORDER SUMMARY ---
..... 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 (06:21 07/15/2016)] [Electronically signed by Braden Gutierrez MD (19:10 07/16/2016)] [Electronically locked/signed by Shelly Sampson R.N. (06:21 07/15/2016)]
--- NOTE | 2016-07-16 19:10 | ED MED RECONCILIATION SUMMARY ---
Patient: JOSEY MOHAMUD Medication Reconciliation Report [facility] VisitID: [id number] [address] [place] [address] 51y, F Registration Date/Time: 07/14/2016 Weight: 69.3 kg Height/Length: 64 in. BMI: 26.2 ALLERGIES: Codeine The patient's Home Medications are listed below: STOP TAKING THE FOLLOWING MEDICATIONS: CloNIDine HCl Oral (0.1 mg) 1 tablet, 3x a day CONTINUE TAKING THE FOLLOWING MEDICATIONS: Atenolol Oral (25 mg) 1 tablet, daily Lisinopril Oral (10 mg) 2 tablets, daily Suboxone Sublingual The source(s) of the original Home Medication information: Not obtained. The following Medications were given to the patient in the Emergency Department: Clonidine [Topical] Topical 0.2 mg, administered: 07/14/2016 7:37:00 PM The following Medications were prescribed to the patient: None.
--- NOTE | 2016-07-16 19:10 | ED MAR SUMMARY ---
..... Medication Administration Record [facility] [address] [place] [address] Patient: JOSEY MOHAMUD Visit ID: [id number] 51y, F Weight: 69.3 kg Height/Length: 64 in BMI: 26.2 ALLERGIES: Codeine Given 19:37 07/14/2016 Shelly Sampson R.N. Medication Administered: CLONIDINE [TOPICAL], Dose: 0.2 mg Patch/Pad Topical. Medication Ordered: Clonidine Topical 0.2 mg (NOW).
--- NOTE | 2016-07-16 19:10 | ED MED RECONCILIATION SUMMARY ---
Patient: JOSEY MOHAMUD Medication Reconciliation Report [facility] VisitID: [id number] [address] [place] [address] 51y, F Registration Date/Time: 07/14/2016 Weight: 69.3 kg Height/Length: 64 in. BMI: 26.2 ALLERGIES: Codeine The patient's Home Medications are listed below: STOP TAKING THE FOLLOWING MEDICATIONS: CloNIDine HCl Oral (0.1 mg) 1 tablet, 3x a day CONTINUE TAKING THE FOLLOWING MEDICATIONS: Atenolol Oral (25 mg) 1 tablet, daily Lisinopril Oral (10 mg) 2 tablets, daily Suboxone Sublingual The source(s) of the original Home Medication information: Not obtained. The following Medications were given to the patient in the Emergency Department: Clonidine [Topical] Topical 0.2 mg, administered: 07/14/2016 7:37:00 PM The following Medications were prescribed to the patient: None.
--- NOTE | 2016-07-16 19:10 | ED DISCHARGE INSTRUCTIONS ---
Patient: JOSEY MOHAMUD General Instructions [facility] VisitID: [id number] [place] [address] 51y, F Registration Date/Time: 07/14/2016 Uncontrolled essential hypertension. INSTRUCTIONS No strenuous activity. Rest. Avoid salty foods. (Leave clonidine patch on for up to 1 week. Avoid caffeine and cold medications for now. Decrease as many stressors as possible.). Warnings: Further evaluation is necessary. GENERAL WARNINGS: Return or contact your physician immediately if your condition worsens or changes unexpectedly, if not improving as expected, or if other problems arise. Your Current Medications: STOP TAKING THE FOLLOWING MEDICATIONS: CloNIDine HCl Oral : Tablet 0.1 mg, 1 tablet 3x a day. CONTINUE TAKING THE FOLLOWING MEDICATIONS: Atenolol Oral : Tablet 25 mg, 1 tablet daily. Lisinopril Oral : Tablet 10 mg, 2 tablets daily. Suboxone Sublingual. Follow-up: Follow up with your doctor in one week. Call for an appointment. Understanding of the discharge instructions verbalized by patient. ADDITIONAL INFORMATION High Blood Pressure --Established High Blood Pressure (Hypertension) is a chronic disease. The cause is unknown in most cases. It can usually be controlled with lifestyle changes and/or medicines. Symptoms of high blood pressure may include headache, dizziness, visual changes, chest pain and shortness of breath. Sometimes it causes no symptoms at all. However, even if there are no symptoms, untreated high blood pressure increases the risk of heart attack, also known as acute myocardial infarction, or AMI, and stroke. It is a serious health risk and should not be ignored. A normal blood pressure is 120/80 or less. The first (top) number is the "systolic" pressure. The second (bottom) number is the "diastolic" pressure. Hypertension exists when either the top number is 140 or higher, OR the bottom number is 90 or higher on repeated measurements. Home Care: All patients with high blood pressure should do the following to lower their pressure. If you are on medicines, then these methods may reduce or eliminate your need for medicines in the future. Begin a weight loss program if you are overweight. Reduce your salt intake. Avoid high salt foods (olives, pickles, smoked meats, salted potato chips, etc.). Do not add salt to your food at the table. Use only small amounts of salt when cooking. Begin an exercise program. Discuss with your doctor what type of exercise program would be best for you. It doesn't have to be difficult. Even brisk walking for 20 minutes three times a week is a good form of exercise. Avoid medicines which contain heart stimulants. This includes many cold and sinus decongestant pills and sprays as well as diet pills. Check the warnings about hypertension on the label. Stimulants such as amphetamine or cocaine could be lethal for someone with hypertension. Never take these. Limit your caffeine intake or switch to caffeine-free products. Stop smoking. If you are a long-time smoker, this can be hard. Enroll in a stop-smoking program to improve your chance of success. Learning how to handle stress better is an important part of any program to lower blood pressure. Learn about relaxation methods such as meditation, yoga or biofeedback. If medicines were prescribed, take them exactly as directed. Missing doses may cause your blood pressure get out of control. Consider buying an automatic blood pressure machine (available at most pharmacies). Use this to monitor your blood pressure at home and report the results to your doctor. Follow Up: Regular visits to your own physician for blood pressure checks and medicine adjustment is an important part of your care. Make a follow-up appointment as directed by our staff. Get Prompt Medical Attention if any of the following occur: Chest pain or shortness of breath Severe headache Throbbing or rushing sound in the ears Nosebleed Sudden severe abdominal pain Extreme drowsiness, confusion or fainting Dizziness or vertigo (dizziness with spinning sensation) Weakness of an arm or leg or one side of the face Difficulty with speech or vision Low-Salt Diet (2 Grams/Day) This diet eliminates foods that are high in salt and restricts the amount of salt that you cook with. It is most often used for patients with high blood pressure, edema (fluid retention), kidney, liver, and heart disease. Table salt contains the mineral sodium. The body needs sodium to work normally. But too much sodium can make your health problems worse. Your healthcare provider is recommending a low-salt (also called low-sodium) diet for you. Your total daily allowance of salt (sodium) is 2 grams. This equals 2,000 milligrams (mg). It is less than 1 teaspoon of table salt. This means you can have only about 700 mg of sodium at each meal. When you cook, limit the salt you use. And if you can avoid using salt, even better. Do not add salt at the table. So, throw away the saltshaker! When shopping, read the package labels. Salt is often called sodium on the label. Choose foods that are Salt-Free, Low Salt, or Very Low Salt. Note that foods with Reduced Salt may notlower your salt intake enough. Beverages OK: Tea, coffee, carbonated beverages, juices AVOID: Flavored international coffees, electrolyte replacement drinks, sports beverages Bread & Cereals OK: All regular bread, rolls, cereals, cakes; low-salt crackers, matzoh crackers AVOID: Salted crackers, pretzels, popcorn; prydeinig toast, pancakes, muffins Fruits & Desserts OK: Ice cream, frozen yogurt, juice bars, gelatin (Jell-O), cookies and pies, sugar, honey, jelly, hard candy AVOID: Most pies, cakes and cookies prepared or processed with salt, instant pudding Meats OK: All fresh meat, fish, poultry, low-salt tuna AVOID: Smoked, pickled, brine-cured, or salted meats or fish. Thisincludes willis, chipped beef, corned beef, hot dogs, luncheon meats, ham, kosher meats, salt pork, sausage, canned tuna, salted codfish, smokedsalmon, fay, sardines, or anchovies. Dairy OK: Milk, chocolate milk, hot chocolate mix; eggs, Low Salt cheeses, yogurt, egg substitute AVOID: Processed cheese, cheese spreads, Roquefort, Camembert, and cottage cheese, buttermilk, instant breakfast drink Beans, Potatoes & Pasta OK: Dry beans, split peas, lentils, potatoes, rice, macaroni, noodles, spaghetti without added salt AVOID: Potato chips, tortilla chips, and similar products Soups OK: Low-salt soups and broths made with allowed foods AVOID: Bouillon cubes, soups with smoked or salted meats, regular soup and broth Vegetables OK: Most are okay; low-salt tomato and vegetable juices AVOID: Sauerkraut and other brine-soaked vegetables, pickles and other pickled vegetables, tomato juice, olives Seasoning & Spices OK: Most seasonings are okay. Good substitutes for salt include: fresh herb blends, Tabasco, lemon, garlic, renee, vinegar, dry mustard, parsley, cilantro, horseradish, tomato paste, regular margarine, mayonnaise, butter, cream cheese, vegetable oil, cream, low-salt salad dressing and gravy AVOID: Regular ketchup, relishes, pickles, soy sauce, teriyaki sauce, Worcestershire sauce, BBQ sauce, tartar sauce, meat tenderizer, chili sauce, regular gravy, regular salad dressing You have been given the following additional information: Hypertension, Established Diet, Low Salt (2Gm) No strenuous activity. Rest. (Electronically signed by Braden Gutierrez MD 07/16/2016 19:10)
--- NOTE | 2016-07-16 19:10 | ED MAR SUMMARY ---
..... Medication Administration Record [facility] [address] [place] [address] Patient: JOSEY MOHAMUD Visit ID: [id number] 51y, F Weight: 69.3 kg Height/Length: 64 in BMI: 26.2 ALLERGIES: Codeine Given 19:37 07/14/2016 Shelly Sampson R.N. Medication Administered: CLONIDINE [TOPICAL], Dose: 0.2 mg Patch/Pad Topical. Medication Ordered: Clonidine Topical 0.2 mg (NOW).
== END 2016-07-14 20:56 | disposition home or self-care (01) ==
LOC: ED SRH 18:43
DX: I10 Essential (primary) hypertension (principal); Z79.899 Other long term (current) drug therapy; Z88.5 Allergy status to narcotic agent; F17.210 Nicotine dependence, cigarettes, uncomplicated

== ENCOUNTER 2016-08-10 18:07 | Inpatient (IN) | payer BC ==
[~2016-08-10] VITALS: Ht 162.6 cm; Wt 73.4 kg
--- NOTE | 2016-08-10 19:57 | ED ORDER SUMMARY ---
..... Patient: JOSEY MOHAMUD OrderSheet [facility] VisitID: [id number] [address] [place] [address] 51y, F Registration Date/Time: 08/10/2016 ORDER SHEET Weight: 68.0 kg (stated) Allergies: Codeine GENERAL ORDERS: CT Abd/Pel w Cont (No) (pending) Urgent (18:38 08/10/2016 HBivens A.R.N.P.) (Ack 18:46 KHoerner) (20:01 MCampbell) CBC w Diff Urgent (18:39 08/10/2016 HBivens A.R.N.P.) (Ack 18:46 KHoerner) (18:49 KKnebel R.N.) CMP Urgent (18:39 08/10/2016 HBivens A.R.N.P.) (Ack 18:46 KHoerner) (18:49 KKnebel R.N.) UA-Culture if indicated Urgent (18:39 08/10/2016 HBivens A.R.N.P.) (Ack 18:46 KHoerner) (20:26 KKnebel R.N.) Amylase Urgent (18:39 08/10/2016 HBivens A.R.N.P.) (Ack 18:46 KHoerner) (18:49 KKnebel R.N.) Lipase Urgent (18:39 08/10/2016 HBivens A.R.N.P.) (Ack 18:46 KHoerner) (18:49 KKnebel R.N.) EKG - ER Stat (19:52 08/10/2016 HBivens A.R.N.P.) (Ack 20:05 IJurca ER Tech1) (20:26 KKnebel R.N.) (20:28 IJurca ER Tech1) Urine Drug Screen Urgent (20:20 08/10/2016 HBivens A.R.N.P.) (Ack 20:20 IJurca ER Tech1) (20:26 KKnebel R.N.) Ethyl Alcohol Urgent (20:20 08/10/2016 HBivens A.R.N.P.) (Ack 20:20 IJurca ER Tech1) (20:26 KKnebel R.N.) MEDICATION ORDERS: NitroGLYCERIN Paste Topical 1.5 in. (NOW, to CW) (20:19 08/10/2016 HBivens A.R.N.P.) (20:50 KKnebel R.N.) IV FLUIDS: IV NS : initial bolus 1000 mL (1000 mL/hr), then none - (NOW) (18:38 08/10/2016 HBivens A.R.N.P.) (18:49 KKnebel R.N.) Toradol IV 30 mg (NOW) (18:38 08/10/2016 HBivens A.R.N.P.) (18:49 KKnebel R.N.) Zofran IV 4 mg (NOW) (18:38 08/10/2016 HBivens A.R.N.P.) (18:49 KKnebel R.N.) IV Saline Lock (18:39 08/10/2016 HBivens A.R.N.P.) (18:41 KKnebel R.N.) KCl IV 20 meq/100mL (Run no faster than 10 units/hr, HIGH ALERT MEDICATION, NOW, Run no faster than 10 mEq/hr) (19:52 08/10/2016 HBivens A.R.N.P.) (20:20 KKnebel R.N.) Magnesium Sulfate IV 2 gm/50mL (HIGH ALERT MEDICATION, NOW, over 2 hours) (20:04 08/10/2016 HBivens A.R.N.P.) (20:54 KKnebel R.N.) ORDER SHEET NOTES: [Electronically signed by Caity Fabian R.N. (11:20 08/11/2016)] [Electronically signed by Alie Varma.R.N.P. (12:58 08/11/2016)] [Electronically locked/signed by Caity Fabian R.N. (11:20 08/11/2016)]
--- NOTE | 2016-08-10 19:57 | ED NURSING NOTES ---
Clinical Report - Nurses [facility] [address] [place] [address] 08/10/2016 18:08 Patient: JOSEY MOHAMUD TRIAGE Triage time 18:18 Aug 10 2016. Acuity: LEVEL 3. Chief Complaint: ABDOMINAL PAIN, NAUSEA and VOMITING. Alert. No acute distress. SEPSIS SCREEN: Sepsis Screen: negative. Negative (no infection suspected/documented). BRE COMA SCORE: Bre Coma Scale: 15- eyes open spontaneously (4); best verbal response- oriented x 4 (5); best motor response- obeys commands (6). --18:29 Caity Fabian R.N. 18:17 08/10/16. BP: 183/102. HR: 64. RR: 16. O2 saturation: 100%. Temp: 99.4 F. Pain level now: 01/16. --18:29 Caity Fabian R.N. Weight: 68 kg stated. Height/Length: 64 inches Per Patient. BMI: 25.8. --18:17 Caity Fabian R.N. Medications Atenolol Oral (Tablet 25 mg) 1 tablet, daily. --18:19 Caity Fabian R.N. Sertraline HCl Oral 50 mg, daily. --18:20 Caity Fabian R.N. Clonidine 0.3, once a week (patch). --18:21 Caity Fabian R.N. Lisinopril Oral (Tablet 10 mg) 2 tablets, daily. --18:21 Caity Fabian R.N. Folic Acid Oral (Tablet 1 mg) 1 tablet, daily. --18:23 Caity Fabian R.N. Tylenol Extra Strength Oral 1,000 mg, PRN. --18:24 Caity Fabian R.N. Allergies Codeine. --18:24 Caity Fabian R.N. History Arrived by private vehicle. Historian: patient. Accompanied by family and daughter. Onset. (about 6 days ago). She has had fever. Treatment [employer]ING: Symptoms improved after treatment. (nausea medication and IVF's at clinic today). PAST MEDICAL HX: Immunizations: up-to-date. Last normal menstrual period- 2 years ago. Denies current . SOCIAL HX: Current every day light tobacco smoker (cigarette)- less than 1/2 a pack per day. No alcohol use or drug use. No recent travel. No infectious disease exposure. No known contact with a sick individual. SELF HARM ASSESSMENT: A self harm assessment was performed. The patient answered "no" to the question "Do you have thoughts of harming or killing yourself?". FALL RISK ASSESSMENT: Fall risk assessment completed. No fall risk identified. NUTRITIONAL RISK ASSESSMENT: The nutritional risk assessment revealed no deficiencies. FUNCTIONAL ASSESSMENT: Functional assessment: no impairments noted. LEARNING NEEDS ASSESSMENT: The learning needs assessment revealed no barriers. ABUSE ASSESSMENT: Abuse assessment: The patient was asked "Do you feel safe in your home?". SKIN INTEGRITY ASSESSMENT: Skin integrity risk assessment completed. No skin integrity risk identified. --18:29 Caity Fabian R.N. PROBLEMS: Seizure. Pancreatitis. Hypertension. Seizure Disorder. Status Epilepticus. Chest Pain. Laceration. Tetanus Status. Immunizations. Substance Abuse. --18:25 Caity Fabian R.N. ADDITIONAL SURGERIES: Appendectomy. Cyst removed from neck. Thoracic outlet surgery. --18:25 Caity Fabian R.N. Interventions ID and allergy band on patient. To room. --18:29 Caity Fabian R.N. PHYSICAL ASSESSMENT GENERAL / NEURO / PSYCH: Alert. Oriented X 4. Appears in pain. RESPIRATORY: Respirations not labored. CVS: Capillary refill less than 2 seconds. GI / : Abdomen soft. Abdominal tenderness. SKIN: Skin is warm and dry. --18:30 Caity Fabian R.N. NURSING PROGRESS NOTES Pulse oximeter and NIBP monitor placed on patient; monitor alarms on. Patient gowned. Head of bed elevated. Two patient identifiers checked. Call light placed in reach. Side rails up x 1. Bed placed in lowest position. Brakes of bed on. Patient ready for evaluation- chart flagged. --18:30 Caity Fabian R.N. 18:39 08/10/2016 Started bag #1 1000 mL IV Fluids IV NS (Saline); bolus of 1000 mL over 1 hour(s) via site #1. Allergies verified and confirmed 5 rights. IV patency established. IV site checked: no pain, redness, or swelling. IV flushed thoroughly pre- and post-medication administration. --18:49 Caity Fabian R.N. 18:41 08/10/2016 Site #1 started via IV in the right hand with an 20g angiocath, with aseptic technique and good blood return; one attempt. Blood drawn: rainbow set. Labeled in the presence of the patient and sent to the lab. Saline lock flushed with 10 mL saline. --18:41 Caity Fabian R.N. 18:44 08/10/2016 Toradol IVP 30 mg given over 2 minute(s) via site #1. Allergies verified and confirmed 5 rights. IV patency established. IV site checked: no pain, redness, or swelling. IV flushed thoroughly pre- and post-medication administration. --18:49 Caity Fabian R.N. 18:47 08/10/2016 Zofran (Ondansetron HCl) IVP 4 mg given over 2 minute(s) via site #1. Allergies verified and confirmed 5 rights. IV patency established. IV site checked: no pain, redness, or swelling. IV flushed thoroughly pre- and post-medication administration. --18:49 Caity Fabian R.N. ( pt in CT). --19:46 Caity Fabian R.N. 19:58 08/10/16. BP: 189/99. HR: 78. RR: 16. O2 saturation: 97%. Pain level now: 12/16. --20:01 Caity Fabian R.N. The patient is calm and resting quietly. Overall patient status is the same- she states feels the same. Patient returned from CT by stretcher with tech. --20:01 Caity Fabian R.N. 19:45. Critical value relayed to ED by JACKLYN Greenfield. K: 2.6. Critical value. Verified lab result and patient ID. --20:04 Ivanna Corbin R.N. 20:20 08/10/2016 Started 20 meq of KCL (Potassium Chloride) IVPB in bag #1 100 mL; at 50 mL/hr over 2 hour(s) via site #1 via IV pump. Allergies verified and confirmed 5 rights. IV patency established. IV site checked: no pain, redness, or swelling. IV flushed thoroughly pre- and post-medication administration. --20:20 Caity Fabian R.N. 20:21 08/10/2016 IV Fluids IV NS Discontinued: bag #1 infused. Total amount infused: 1000 mL. IV patency established. IV site checked: no pain, redness, or swelling. IV flushed thoroughly. --20:21 Caity Fabian R.N. Patient ID band checked for patient name: patient confirmed. Instructions provided to collect clean catch urine and patient verbalized understanding. Clean catch urine collected with return of yellow-colored urine; odor is normal; sample sent to lab for urinalysis and drug screen. Specimen labeled in the presence of the patient. --20:25 Caity Fabian R.N. 20:40 08/10/2016 NITROGLYCERIN PASTE Topical Paste 1.5 inch. Applied to the left chest. Allergies verified and confirmed 5 rights. --20:50 Caity Fabian R.N. 20:48 08/10/2016 Site #2 started via IV in the left wrist with an 20g angiocath, with aseptic technique and good blood return; one attempt. Saline lock flushed with 10 mL saline. --20:53 Caity Fabian R.N. 20:54 08/10/2016 Magnesium Sulfate (Magnesium Sulfate in D5W) IVP 2 gm given over 2 hour(s) via site #1. Allergies verified and confirmed 5 rights. IV patency established. IV site checked: no pain, redness, or swelling. IV flushed thoroughly pre- and post-medication administration. --20:54 Caity Fabian R.N. 20:55 08/10/2016 KCL IVPB Response: pain is gone now. The patient feels better. (pt was having pain in right arm medication was moved to left wrist IV and restarted. Pt has no complaints of burning pain at this time.). --20:55 Caity Fabian R.N. EKG time: (2025 PM). EKG was ordered, performed by a tech and shown to the ED physician. --21:00 CarlosRicha 21:00 08/10/16. --21:36 Caity Fabian R.N. 21:05 08/10/16. BP: 188/116. HR: 66. RR: 16. O2 saturation: 100%. --21:36 Caity Fabian R.N. 21:36 08/10/16. BP: 187/106. HR: 63. RR: 16. O2 saturation: 100%. --21:36 Caity Fabian R.N. DISPOSITION / DISCHARGE Departure time: 22:00 Aug 10 2016. Condition at departure: improved. Admitted to Acute Care. Transported via stretcher by nurse with monitor and IV. Report was given to a nurse via a phone call. Report included patient's care, treatment, medications, reviewed medication reconcilliation, and condition (including any recent changes or anticipated changes). All questions were answered. Report was acknowledged. (Savi ROUSE). Patient's personal items include: shirt, pants, undergarments, shoes, purse, wallet and cell phone; items were placed in belongings bag, given to the patient and transported with the patient. FALL RISK ASSESSMENT: Fall risk assessment completed. No fall risk identified. --22:24 Caity Fabian R.N. 21:31 08/10/16. BP: 187/106. HR: 63. RR: 16. O2 saturation: 100%. --22:24 Caity Fabian R.N. Locked/Released at 08/11/2016 11:20 by Caity Fabian R.N.
--- NOTE | 2016-08-10 19:57 | ED ORDER SUMMARY ---
..... Patient: JOSEY MOHAMUD OrderSheet [facility] VisitID: [id number] [address] [place] [address] 51y, F Registration Date/Time: 08/10/2016 ORDER SHEET Weight: 68.0 kg (stated) Allergies: Codeine GENERAL ORDERS: CT Abd/Pel w Cont (No) (pending) Urgent (18:38 08/10/2016 HBivens A.R.N.P.) (Ack 18:46 KHoerner) (20:01 MCampbell) CBC w Diff Urgent (18:39 08/10/2016 HBivens A.R.N.P.) (Ack 18:46 KHoerner) (18:49 KKnebel R.N.) CMP Urgent (18:39 08/10/2016 HBivens A.R.N.P.) (Ack 18:46 KHoerner) (18:49 KKnebel R.N.) UA-Culture if indicated Urgent (18:39 08/10/2016 HBivens A.R.N.P.) (Ack 18:46 KHoerner) (20:26 KKnebel R.N.) Amylase Urgent (18:39 08/10/2016 HBivens A.R.N.P.) (Ack 18:46 KHoerner) (18:49 KKnebel R.N.) Lipase Urgent (18:39 08/10/2016 HBivens A.R.N.P.) (Ack 18:46 KHoerner) (18:49 KKnebel R.N.) EKG - ER Stat (19:52 08/10/2016 HBivens A.R.N.P.) (Ack 20:05 IJurca ER Tech1) (20:26 KKnebel R.N.) (20:28 IJurca ER Tech1) Urine Drug Screen Urgent (20:20 08/10/2016 HBivens A.R.N.P.) (Ack 20:20 IJurca ER Tech1) (20:26 KKnebel R.N.) Ethyl Alcohol Urgent (20:20 08/10/2016 HBivens A.R.N.P.) (Ack 20:20 IJurca ER Tech1) (20:26 KKnebel R.N.) MEDICATION ORDERS: NitroGLYCERIN Paste Topical 1.5 in. (NOW, to CW) (20:19 08/10/2016 HBivens A.R.N.P.) (20:50 KKnebel R.N.) IV FLUIDS: IV NS : initial bolus 1000 mL (1000 mL/hr), then none - (NOW) (18:38 08/10/2016 HBivens A.R.N.P.) (18:49 KKnebel R.N.) Toradol IV 30 mg (NOW) (18:38 08/10/2016 HBivens A.R.N.P.) (18:49 KKnebel R.N.) Zofran IV 4 mg (NOW) (18:38 08/10/2016 HBivens A.R.N.P.) (18:49 KKnebel R.N.) IV Saline Lock (18:39 08/10/2016 HBivens A.R.N.P.) (18:41 KKnebel R.N.) KCl IV 20 meq/100mL (Run no faster than 10 units/hr, HIGH ALERT MEDICATION, NOW, Run no faster than 10 mEq/hr) (19:52 08/10/2016 HBivens A.R.N.P.) (20:20 KKnebel R.N.) Magnesium Sulfate IV 2 gm/50mL (HIGH ALERT MEDICATION, NOW, over 2 hours) (20:04 08/10/2016 HBivens A.R.N.P.) (20:54 KKnebel R.N.) ORDER SHEET NOTES: [Electronically signed by Caity Fabian R.N. (11:20 08/11/2016)] [Electronically signed by Alie Varma.R.N.P. (12:58 08/11/2016)] [Electronically locked/signed by Caity Fabian R.N. (11:20 08/11/2016)]
--- NOTE | 2016-08-10 19:57 | ED CLINICAL REPORT ---
Clinical Report - Physicians/Mid Levels [facility] [address] [place] [address] 08/10/2016 18:08 Patient: JOSEY MOHAMUD Time Seen: 18:16; initial patient contact, initial documentation, patient care assumed. Arrived- By private vehicle. Historian- patient. HISTORY OF PRESENT ILLNESS Chief Complaint: VOMITING. This started about 6 days ago and is still present. No recent travel. She has had nausea and abdominal pain. She has had severe vomiting. The vomiting has occurred numerous times and has been bilious. No feculent emesis, blood-tinged emesis, coffee-grounds emesis, frankly bloody emesis or unusually dark emesis. She has had diarrhea (started in beginning as diarrhea, that went away, lasted a couple of days). No black stools, bloody stools, constipation, flank pain or history of possible bad food exposure. No known contact with a sick individual or change in routine. Has not recently been camping or on antibiotics. The illness is described as severe. Similar symptoms previously: None. Recent medical care: The patient was seen recently at this facility in a clinic. 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 REVIEW OF SYSTEMS The patient has had fever of 101 F and difficulty with urination (has only peed twice since yesterday). No muscle aches, dark urine, dizziness, chest pain or difficulty breathing. Denies current . All systems otherwise negative, except as recorded above. PAST HISTORY See nurses notes. PROBLEMS: Seizure. Pancreatitis. Hypertension. Seizure Disorder. Status Epilepticus. Chest Pain. Laceration. Tetanus Status. Immunizations. Substance Abuse. --18:25 Caity Fabian R.N. ADDITIONAL SURGERIES: Appendectomy. Cyst removed from neck. Thoracic outlet surgery. --18:25 Caity Fabian R.N. SOCIAL HISTORY Light tobacco smoker. No alcohol use or drug use. No recent travel. Is a local resident. FAMILY HISTORY Negative. ADDITIONAL NOTES The nursing notes have been reviewed with agreement regarding the chief complaint, HPI, ROS, PMH and patient medications and allergies. PHYSICAL EXAM Vital Signs: 08/10/2016 18:17 BP: 183/102. HR: 64. RR: 16. O2 saturation: 100%. Temp: 99.4 F. Pain level now: 01/16. Have been reviewed as abnormal and appear to be correct. Hypertensive. Heart rate normal. Respiratory rate normal. Temperature normal. Oxygen saturation normal. Appearance: Alert. Oriented X3. No acute distress. Eyes: Pupils equal, round and reactive to light. Eyes normal inspection. ENT: Ears normal. Nose normal. Pharynx abnormal. Dry mucous membranes present. Neck: Normal inspection. Neck supple. CVS: Normal heart rate and rhythm. Heart sounds normal. Pulses normal. Respiratory: No respiratory distress. Breath sounds normal. Abdomen: Soft. Moderate tenderness diffusely (tender everywhere but RUQ). No guarding, rebound tenderness or Mcdowell's, obturator or psoas sign present. Bowel sounds normal. No organomegaly. No mass. Tenderness present. Back: Normal inspection. Skin: Skin warm and dry. Normal skin color. No rash. Normal skin turgor. Extremities: Extremities exhibit normal ROM. No lower extremity edema. Neuro: Oriented X 3. No motor deficit. No sensory deficit. LABS, X-RAYS, AND EKG EKG: EKG time: (2025). No acute process. No acute ischemia. Normal EKG. Rate: 61. Normal EKG. The study has been interpreted contemporaneously by me (and dr abdullahi). The EKG appears to be a good tracing. Interpretation time: 2027. Abdominal CT: . Interpretation time: 2027. Laboratory Tests: UA-Culture if indicated: (TENZIN: 08/10/2016 20:20) ( MsgRcvd 08/10/2016 20:44) Final results Test Result Flag Units (Reference) URINE COLOR YELLOW URINE APPEARANCE CLEAR URINE GLUCOSE NEGATIVE (NEGATIVE) URINE BILIRUBIN NEGATIVE (NEGATIVE) URINE KETONE NEGATIVE (NEGATIVE) URINE SPECIFIC GRAVITY <= 1.005 L (1.010-1.030) URINE PH 5.5 (5.0-8.0) URINE PROTEIN NEGATIVE (NEGATIVE) URINE UROBILINOGEN 0.2 EU/dL (0.2-1.0) URINE NITRITE NEGATIVE (NEGATIVE) URINE BLOOD TRACE-INTACT (NEGATIVE) URINE LEUK ESTERASE NEGATIVE (NEGATIVE) URINE RBC 1-3 rbc/hpf (0-1) URINE WBC 1-3 wbc/hpf (0-1) URINE EPITHELIAL CELLS 1-3 EPI/hpf (0-5) URINE BACTERIA MODERATE (2+ TO 3+) (NONE SEEN) URINE COMMENT CULTURE INDICATED 0-1 HYALINE CASTS1+ MUCOUSURINE CULTURES ARE SET-UP BASED ON THE FOLLOWING CRITERIA:POSITIVE NITRITEPOSITIVE LEUKOCYTE ESTERASEGREATER THAN 10 WHITE BLOOD CELLSMODERATE (2+) OR GREATER BACTERIA CBC w Diff: (TENZIN: 08/10/2016 18:35) ( [facility] 08/10[facility] 18:48) Final results Test Result Flag Units (Reference) WHITE BLOOD COUNT 6.9 K/uL (4.5-11.5) RED BLOOD COUNT 4.32 M/uL (4.00-5.20) HEMOGLOBIN 14.5 gm/dL (12.0-16.0) HEMATOCRIT 42.2 % (36.0-46.0) MEAN CELL VOLUME 98 fL (80-100) MEAN CORPUSCULAR HGB 34 pg (26-34) MEAN CORPUSCULAR HGB CONC 34 g/dL (31-37) RED CELL DISTRIBUTION WIDTH 16.0 H % (11.6-14.8) PLATELET COUNT 247 K/uL (150-400) NEUTROPHIL % 65.2 % (50-75) LYMPH % 27.8 % (25-40) MONO % 6.1 % (3-14) EOSINOPHIL % 0.7 % (0-4) BASOPHIL % 0.2 % (0-2) Urine Drug Screen: (TENZIN: 08/10/2016 20:20) ( [facility] 08/10/2016 20:54) Final results Test Result Flag Units (Reference) AMPHETAMINE/METHAMPHETAMINE NEGATIVE (NEGATIVE) BARBITURATE NEGATIVE (NEGATIVE) BENZODIAZEPINE NEGATIVE (NEGATIVE) CANNABINOID NEGATIVE (NEGATIVE) COCAINE NEGATIVE (NEGATIVE) ECSTASY NEGATIVE (NEGATIVE) METHADONE NEGATIVE (NEGATIVE) OPIATE NEGATIVE (NEGATIVE) The urine drug screen is a qualitative screening test fordrug overdose and abuse. All screen results should beconsidered as presumptive.Drugs screened for are as follows:BenzodiazepinesCocaineAmphetamines/MetamphetaminesTHC (Tetrahydrocannabinol)OpiatesBarbituratesEcstasyMethadonePositive results are unconfirmed. For confirmation, notifythe lab for the specimen to be sent to the reference lab.All confirmations must be performed by a differentmethodology.The ingestion of natural herbal and plant productscontaining Ephedra/Ephedra metabolites can produce in urineone or more substances capable of cross reacting withamphetamine/methamphetamine immunoassays. These testsprovide a preliminary result only. A more specificalternative chemical method must be used to obtain aconfirmed analytical result. Ethyl Alcohol: (TENZIN: 08/10/2016 18:00) ( [facility] 08/10/2016 20:38) Final results Test Result Flag Units (Reference) ETHYL ALCOHOL <3 L mg/dL (3-10) CMP: (TENZIN: 08/10/2016 18:35) ( [facility] 19:40) Final results Test Result Flag Units (Reference) GLUCOSE 126 H mg/dL (70-110) BUN 15 mg/dL (7-18) CREATININE 0.8 mg/dL (0.6-1.3) Estimated GFR >60 mL/min Estimated GFR- >60 mL/min Note: Persistent reduction over 3 months in eGFR<60 mL/min/1.73 m2 defines CKD. Patients with eGFR values>=60 mL/min/1.73 m2 may also have CKD if evidence ofpersistent proteinuria. Additional information may be foundat www.[email or web address].org. SODIUM 140 mmol/L (136-145) POTASSIUM 2.6 *L mmol/L (3.5-5.1) CRITICAL RESULTS CALLEDCalled to Radha FARIAS 08/10/161938Were 2 patient identifiers used? YWas the result read back? Y CHLORIDE 101 mmol/L (98-107) CARBON DIOXIDE 25 mmol/L (21-32) CALCIUM 8.3 L mg/dL (8.5-10.1) TOTAL PROTEIN 6.8 g/dL (6.4-8.2) ALBUMIN 4.0 g/dL (3.3-5.0) BILIRUBIN, TOTAL 0.8 mg/dL (0.0-1.0) ALKALINE PHOSPHATASE 109 U/L (46-116) AST (SGOT) 48 H U/L (15-37) ALT (SGPT) 50 U/L (12-78) MAGNESIUM 1.3 L mg/dL (1.8-2.4) LIPASE 225 U/L (73-393) AMYLASE 58 U/L (25-115) . PROGRESS AND PROCEDURES Course of Care: went to inform pt of k results and need for admit, pt in ct, and spouse in room, spouse updated 20:30 08/10/16. pt has roc for narcs, suboxone program and #4 er visits, see report for full details had discussion with pt re admit and ct results and plan of care, pt denies any having any alcohol since last admit here and states no suboxone or drugs in a month neither spouse pulled me aside after that conversation to tell me that he doesn't trust spouse on her answers of the drinking or drugs, and hopes that we will check these things, informed that these tests were already ordered, he was happy with that. 08/10/2016 19:58 BP: 189/99. HR: 78. RR: 16. O2 saturation: 97%. Pain level now: 8/10. Vital Signs: have been reviewed as abnormal. Hypertensive. Heart rate normal. Respiratory rate normal. Temperature normal. Oxygen saturation normal. Discussed case with on-call health care provider, ([address] weinberg). Reviewed test results. Agreed upon treatment plan and decision to admit. Health care provider will see patient in hospital. Differential Diagnosis: I considered gastritis, peptic ulcer disease, ischemia, gastroesophageal reflux disease, gastroparesis, Crohn's disease, ulcerative colitis, small bowel obstruction, gastric outlet obstruction, colonic obstruction, colon cancer, gastroenteritis, cholecystitis, pancreatitis, viral syndrome, meningitis, enterocolitis, urinary tract infection, hepatitis, sepsis, increased intracranial pressure, drugs, and psychogenic etiology as a possible cause of vomiting in this patient. This is a partial list of diagnoses considered. Above considerations are based on history, physical exam, reassessment, laboratory data and other information. Differential diagnosis was discussed with patient. Disposition: Admitted to Acute Care. 19:57. Condition: good and stable. CLINICAL IMPRESSION Intractable vomiting with nausea, dehydration and volume depletion. Not bilious. Uncontrolled hypertension. Hypokalemia. Mild hypomagnesemia. (Electronically signed by Alie Varma A.R.N.P. 08/11/2016 12:58)
--- NOTE | 2016-08-10 20:34 | DIAGNOSTIC IMAGING REPORT ---
PROCEDURE: ABDOMEN/PELVIS WITH CONTRAST CLINICAL INDICATION: VOMITING TECHNIQUE: 125 ml of Isovue 300 were injected intravenously and axial images were obtained of the abdomen and pelvis with sagittal and coronal reformations. COMPARISON: 11/26/2015 FINDINGS: ABDOMEN: Clear lung bases. Normal sized heart. No hiatal hernia. Diffusely hypodense liver. The gallbladder, adrenal glands, kidneys, pancreas and spleen are normal. The abdominal aorta is normal in its course and caliber. There are no suspicious calcifications, retroperitoneal adenopathy or masses. The stomach, upper bowel loops, and mesentery are normal. Intact anterior abdominal wall. No free fluid or inflammation. Mild diffuse circumferential wall thickening of the proximal sigmoid colon without significant pericolonic inflammation or extraluminal gas.. PELVIS: The pelvic small bowel loops are normal. Normal amount of stool in the colon and rectum. The retroverted uterus, ovaries, urinary bladder, and pelvic vessels are normal. No adenopathy, free fluid, or pelvic mass. Intact osseous structures with degenerative changes in the lower lumbar spine IMPRESSION: 1. Minor circumferential proximal sigmoid colon wall thickening may indicate chronic colitis, mild or early findings of mild colitis but no significant acute inflammation. 2. No acute process. 3. Chronic hepatic hypodensity/hepatic steatosis. 4. Discussed with Alie Varma in the emergency room. All CT scans at this facility use dose modulation, iterative reconstruction, and/or weight-based dosing when appropriate to reduce radiation dose to as low as reasonably achievable.
[2016-08-10 22:30] VITALS: BP 201/105
[2016-08-10 22:48] VITALS: BP 178/100
[2016-08-10] MEDS ORDERED: CATAPRES-TTS0.3 MG TOP (22:55)
[2016-08-11] VITALS (16 sets, daily range): BP systolic 139–214; BP diastolic 72–123
--- NOTE | 2016-08-11 00:14 | Progress Note ---
Subjective General Admission History and Physical Examination Patient Name: Tonya Chacon Admission Date: August 10, 2016 Primary Care Provider: [facility] Attending Physician: Lukas Ulloa M.D. Admitting Physician: Lukas Ulloa M.D. Code Status: Full Code Room: 210-B SUBJECTIVE Historian: Patient and family Reliability: Fair Chief Complaint: Intractable nausea, vomiting, and diarrhea History of Present Illness: The patient is a 51-year-old white female with a significant past medical history of alcohol abuse, pancreatitis, alcohol withdrawal seizures, hypertension, gastroesophageal reflux, depression, who presented to [facility] emergency room on the day of admission secondary to suspected intractable nausea , vomiting, and diarrhea of [address] [facility] ER evaluation was consistent with intractable nausea and vomiting, hypokalemia, and hypomagnesemia. Secondary to the above, the patient was admitted by Lukas Ulloa M.D. for further evaluation and treatment. The history of present illness began approximately 6 days prior to admission when the patient experienced diarrhea followed by nausea with recurrent emesis. There was no blood or coffee-ground material present in the emesis. The patient denied any history of hematochezia or melena. She'll persistent symptoms and was treated at a local urgent care clinic on the day prior to admission. She received IV fluids and anti-emetics medications with short-term relief of her symptoms only to have them return on the day of admission. Secondary to persistent nausea and vomiting the patient presented to [facility] emergency department for further evaluation and treatment. [facility] ER evaluation was consistent with probable gastritis with intractable nausea and vomiting. This is associated with hypokalemia and hypomagnesemia. Secondary to the above, the patient was admitted by Lukas Ulloa M.D. for further evaluation and treatment. PAST MEDICAL HISTORY Illnesses: 1. Hypertension 2. Depression 3. History of alcohol abuse/dependence 4. Wlvglrvkrrau-jpcseth-ofyjfzz Allergies: 1. Codeine Medications: 1. Atenolol 25 mg by mouth daily 2. Clonidine patch 0.3 mg topically every weekly 3. Lisinopril 10 mg by mouth daily 4. Zoloft 50 mg by mouth daily Surgery: 1. Appendectomy, 1983 2. Thoracic surgery 2009 Injuries: 1. No significant Hospitalizations: 1. 2016 pancreatitis 2. 2017 pancreatitis FAMILY HISTORY Parents: 1. Father, Mingo history unknown, 2. Mother, Josie, living, 71, healthy Siblings: 1. Male, Rivera, , 48 2. Female, Hannah, , 46 Children: 1. Female, Matthew, living, 30, healthy Other significant family history: None SOCIAL HISTORY 1. Marital Status: 2. Baptist: None 3. Education: High school, 12 grade 4. 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 Occupational health exposures: None HABITS 1. Tobacco: One half pack per day, 15 pack years-cigarettes 2. Drugs: None 3. Alcohol: No recent, history of alcohol abuse 4. Caffeine: One cup coffee, one can soft drink per day HEALTH SUPERVISION Item/Test 1. Not reviewed IMMUNIZATIONS: 1. Pneumococcal: No previous 2. Influenza: Unknown 3. Tetanus: Unknown ADVANCED DIRECTIVES: 1. Living well: No 2. POLST: No 3. Code Status: FULL CODE 4. 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 Donor card: No REVIEW OF SYSTEMS Remarkable for those things stated in the history of present illness and past medical history. Seventeen point review of system completed with the following notable findings: General: Fatigue, pain, weakness, fever Skin: Rash, dryness Eyes: Decreased visual acuity requiring corrective lenses Mouth: Gums soreness Throat: Sore throat Cardiovascular: Chest tightness, hypertension Gastrointestinal: Nausea, vomiting, loss of appetite, abdominal pain, diarrhea Musculoskeletal: Muscle cramps, backache Neurological: Headaches Physical Exam Vital Signs / I&Os Vital Signs Date Time Temp Pulse Resp B/P Pulse O2 O2 Flow FiO2 Ox Delivery Rate 08/10 2248 58 178/100 08/10 2230 98.2 62 19 201/105 97 Room Air I&O 08/11 0000 08/10 1600 08/10 0800 Intake Total Output Total Balance General Appearance Alert, Oriented X3, Cooperative, No acute distress HEENT Atraumatic, PERRLA, EOMI, Moist mucous membranes Lungs Clear to auscultation, Normal air movement Neck Supple, No JVD Cardiovascular Regular rate and rhythm, Normal S1 and S2 Abdomen Normal bowel sounds, Soft, mild diffuse tenderness. No rebound. Extremities No cyanosis, No clubbing, No edema Neurological Cranial nerves intact, Strength 5/5 x4 ext's, No lateralizing signs Psych/Mental Status Mental status normal, Mood normal LAB Results Laboratory Tests 08/10 1835 1800 Chemistry Plasma Sodium (136 - 145 mmol/L) 140 Plasma Potassium (3.5 - 5.1 mmol/L) 2.6 Plasma Chloride (98 - 107 mmol/L) 101 CO2 (Enzymatic) (21 - 32 mmol/L) 25 BUN (7 - 18 mg/dL) 15 Creatinine (0.6 - 1.3 mg/dL) 0.8 Est GFR ( Amer) (mL/min) >60 Est GFR (Non-Af Amer) (mL/min) >60 Glucose (70 - 110 mg/dL) 126 Plasma Calcium (8.5 - 10.1 mg/dL) 8.3 Plasma Magnesium (1.8 - 2.4 mg/dL) 1.3 Total Bilirubin (0.0 - 1.0 mg/dL) 0.8 AST (15 - 37 U/L) 48 ALT (12 - 78 U/L) 50 Alkaline Phosphatase (46 - 116 U/L) 109 Total Protein (6.4 - 8.2 g/dL) 6.8 Albumin (3.3 - 5.0 g/dL) 4.0 Amylase (25 - 115 U/L) 58 Lipase (73 - 393 U/L) 225 Hematology WBC (4.5 - 11.5 K/uL) 6.9 RBC (4.00 - 5.20 M/uL) 4.32 Hgb (12.0 - 16.0 gm/dL) 14.5 Hct (36.0 - 46.0 %) 42.2 MCV (80 - 100 fL) 98 MCH (26 - 34 pg) 34 RDW (11.6 - 14.8 %) 16.0 Neut % (Auto) (50 - 75 %) 65.2 Lymph % (Auto) (25 - 40 %) 27.8 [place] % (Auto) (3 - 14 %) 6.1 Eos % (Auto) (0 - 4 %) 0.7 Baso % (Auto) (0 - 2 %) 0.2 Plt Count, EDTA (150 - 400 K/uL) 247 PUBS MCHC (31 - 37 g/dL) 34 Toxicology Urine Opiates Screen (NEGATIVE) NEGATIVE Urine Methadone Screen (NEGATIVE) NEGATIVE Ur Barbiturates Screen (NEGATIVE) NEGATIVE U Amphetamin/Meth Scrn (NEGATIVE) NEGATIVE MDMA (Ecstasy) Screen (NEGATIVE) NEGATIVE U Benzodiazepines Scrn (NEGATIVE) NEGATIVE Urine Cocaine Screen (NEGATIVE) NEGATIVE U Cannabinoids Screen (NEGATIVE) NEGATIVE Plasma/Serum Ethyl Alc (3 - 10 mg/dL) <3 Urines Urine Color YELLOW Urine Appearance CLEAR Urine pH (5.0 - 8.0) 5.5 Ur Specific [place] (1.010 - 1.030) <= 1.005 Urine Protein (NEGATIVE) NEGATIVE Urine Ketones (NEGATIVE) NEGATIVE Urine Blood (NEGATIVE) TRACE-INTACT Urine Nitrite (NEGATIVE) NEGATIVE Urine Bilirubin (NEGATIVE) NEGATIVE Urine Urobilinogen (0.2 - 1.0 EU/dL) 0.2 Ur Leukocyte Esterase (NEGATIVE) NEGATIVE Urine RBC (0 - 1 rbc/hpf) 1-3 Urine WBC (0 - 1 wbc/hpf) 1-3 Ur Epithelial Cells (0 - 5 EPI/hpf) 1-3 Urine Bacteria (NONE SEEN) MODERATE (2+ TO 3+) Urine Glucose (NEGATIVE) NEGATIVE Urine Comment CULTURE INDICATED Microbiology Date/Time Procedure - Status Source Growth 08/11 2019 Urine Culture - RECD URINE CC Imaging CT scan-abdomen/Pelvis IMPRESSION: 1. Minor circumferential proximal sigmoid colon wall thickening may indicate chronic colitis, mild or early findings of mild colitis but no significant acute inflammation. 2. No acute process. 3. Chronic hepatic hypodensity/hepatic steatosis. 4. Discussed with Alie Varma in the emergency room. Dictated by: ODETTE PEREZ MD D: ELKIN;08/10/162033 Assessment and Plan Problem List 1. Intractable nausea and vomiting Status Acute Onset Date Unknown Plan -Patient presents with history of intractable nausea and vomiting -Probable gastroenteritis -IV fluids, anti-emetics -Monitor -CT shows questionable colitis. Monitor for symptoms 2. Hypertension Plan -Patient with long-standing history of hypertension -Continue outpatient medical regimen using IV medications as necessary -Low-salt diet when taking well orally -Monitor 3. Hypokalemia Plan -Patient with findings of moderate hypokalemia -IV supplementation -Monitor 4. UTI (urinary tract infection) Status Acute Onset Date Unknown Plan -Patient with urinary sediment suggestive of UTI -No significant urinary symptoms -Afebrile -Rocephin 1 g IV 1 -Urine C&S -Monitor 5. Hypomagnesemia Status Acute Onset Date Unknown Plan -Patient with findings of hypomagnesemia -IV supplementation -Oral supplementation -Monitor Current status: Fair, unstable Anticipated discharge date: Anticipated discharge 1-2 days Anticipated discharge placement: Home Patient care time: Time spent in chart review, patient interview, physical exam, CPOE, and care documentation: 70 minutes Visit to patient today: 1 Complexity of care: High Initial evaluation: ACU E&M Codes Rounding: Inpt-High/[id number]
--- NOTE | 2016-08-11 12:58 | ED DISCHARGE INSTRUCTIONS ---
Patient: JOSEY MOHAMUD General Instructions [facility] VisitID: [id number] [address] [place] [place] [address] 51y, F Registration Date/Time: 08/10/2016 Intractable vomiting with nausea, dehydration and volume depletion. Not bilious. Uncontrolled hypertension. Hypokalemia. Mild hypomagnesemia. (Electronically signed by Alie Varma A.R.N.P. 08/11/2016 12:58)
--- NOTE | 2016-08-11 12:58 | ED MED RECONCILIATION SUMMARY ---
Patient: JOSEY MOHAMUD Medication Reconciliation Report [facility] VisitID: [id number] [address] [place] [address] 51y, F Registration Date/Time: 08/10/2016 Weight: 68.0 kg Height/Length: 64 in. BMI: 25.8 ALLERGIES: Codeine The patient's Home Medications are listed below: THE FOLLOWING MEDICATIONS NEED TO BE RECONCILED: Atenolol Oral (25 mg) 1 tablet, daily Clonidine 0.3, once a week, patch Folic Acid Oral (1 mg) 1 tablet, daily Lisinopril Oral (10 mg) 2 tablets, daily Sertraline HCl Oral 50 mg, daily Tylenol Extra Strength Oral 1,000 mg, PRN The source(s) of the original Home Medication information: Not obtained. The following Medications were given to the patient in the Emergency Department: IV NS IV Fluids bolus 1000 mL over 1 hour(s), administered: 08/10/2016 6:39:00 PM Toradol [IVP] IVP 30 mg, administered: 08/10/2016 6:44:00 PM Zofran [IVP] IVP 4 mg, administered: 08/10/2016 6:47:00 PM KCL [IVPB] IVPB bolus 0, then 20 meq 50 mL/hr, administered: 08/10/2016 8:20:00 PM NITROGLYCERIN PASTE [TOPICAL] Topical 1.5 in., administered: 08/10/2016 8:40:00 PM Magnesium Sulfate [IVP] IVP 2 gm, administered: 08/10/2016 8:54:00 PM The following Medications were prescribed to the patient: None.
--- NOTE | 2016-08-11 12:58 | ED DISCHARGE INSTRUCTIONS ---
Patient: JOSEY MOHAMUD General Instructions [facility] VisitID: [id number] [address] [place] [address] 51y, F Registration Date/Time: 08/10/2016 Intractable vomiting with nausea, dehydration and volume depletion. Not bilious. Uncontrolled hypertension. Hypokalemia. Mild hypomagnesemia. (Electronically signed by Alie Varma A.R.N.P. 08/11/2016 12:58)
--- NOTE | 2016-08-11 12:58 | ED MED RECONCILIATION SUMMARY ---
Patient: JOSEY MOHAMUD Medication Reconciliation Report [facility] VisitID: [id number] [address] [place] [address] 51y, F Registration Date/Time: 08/10/2016 Weight: 68.0 kg Height/Length: 64 in. BMI: 25.8 ALLERGIES: Codeine The patient's Home Medications are listed below: THE FOLLOWING MEDICATIONS NEED TO BE RECONCILED: Atenolol Oral (25 mg) 1 tablet, daily Clonidine 0.3, once a week, patch Folic Acid Oral (1 mg) 1 tablet, daily Lisinopril Oral (10 mg) 2 tablets, daily Sertraline HCl Oral 50 mg, daily Tylenol Extra Strength Oral 1,000 mg, PRN The source(s) of the original Home Medication information: Not obtained. The following Medications were given to the patient in the Emergency Department: IV NS IV Fluids bolus 1000 mL over 1 hour(s), administered: 08/10/2016 6:39:00 PM Toradol [IVP] IVP 30 mg, administered: 08/10/2016 6:44:00 PM Zofran [IVP] IVP 4 mg, administered: 08/10/2016 6:47:00 PM KCL [IVPB] IVPB bolus 0, then 20 meq 50 mL/hr, administered: 08/10/2016 8:20:00 PM NITROGLYCERIN PASTE [TOPICAL] Topical 1.5 in., administered: 08/10/2016 8:40:00 PM Magnesium Sulfate [IVP] IVP 2 gm, administered: 08/10/2016 8:54:00 PM The following Medications were prescribed to the patient: None.
--- NOTE | 2016-08-11 12:58 | ED MAR SUMMARY ---
..... Medication Administration Record [facility] [address] [place] [address] Patient: JOSEY MOHAMUD Visit ID: [id number] 51y, F Weight: 68.0 kg Height/Length: 64 in BMI: 25.8 ALLERGIES: Codeine Start 18:39 08/10/2016 Caity Fabian R.N., Stop 20:21 08/10/2016 Caity Fabian R.N. Medication Administered: IV NS (SALINE), Dose: IV Fluids, Bolus: 1000 mL over 1 hour(s), Dispensed: 1000 mL bag, Site: #1. Medication Ordered: IV NS : initial bolus 1000 mL (1000 mL/hr), then none - (NOW). Given 18:44 08/10/2016 Caity Fabian R.N. Medication Administered: TORADOL [IVP], Dose: 30 mg IVP over 2 minute(s), Site: #1 right hand. Medication Ordered: Toradol IV 30 mg (NOW). Given 18:47 08/10/2016 Caity Fabian R.N. Medication Administered: ZOFRAN [IVP] (ONDANSETRON HCL), Dose: 4 mg IVP over 2 minute(s), Site: #1 right hand. Medication Ordered: Zofran IV 4 mg (NOW). Start 20:20 08/10/2016 Caity Fabian R.N. Medication Administered: KCL [IVPB] (POTASSIUM CHLORIDE), Dose: 20 meq IVPB over 2 hour(s), Rate: 50 mL/hr, Dispensed: 100 mL bag, Site: #1 right hand. Medication Ordered: KCl IV 20 meq/100mL (Run no faster than 10 units/hr, HIGH ALERT MEDICATION, NOW, Run no faster than 10 mEq/hr). Given 20:40 08/10/2016 Caity Fabian R.N. Medication Administered: NITROGLYCERIN PASTE [TOPICAL], Dose: 1.5 in. Paste Topical. Medication Ordered: NitroGLYCERIN Paste Topical 1.5 in. (NOW, to ). Given 20:54 08/10/2016 Knebel, Caity, R.N. Medication Administered: MAGNESIUM SULFATE [IVP] (MAGNESIUM SULFATE IN D5W), Dose: 2 gm IVP over 2 hour(s), Site: #1 right hand. Medication Ordered: Magnesium Sulfate IV 2 gm/50mL (HIGH ALERT MEDICATION, NOW, over 2 hours).
--- NOTE | 2016-08-11 12:58 | ED MAR SUMMARY ---
..... Medication Administration Record [facility] [address] [place] [address] Patient: JOSEY MOHAMUD Visit ID: [id number] 51y, F Weight: 68.0 kg Height/Length: 64 in BMI: 25.8 ALLERGIES: Codeine Start 18:39 08/10/2016 Caity Fabian R.N., Stop 20:21 08/10/2016 Caity Fabian R.N. Medication Administered: IV NS (SALINE), Dose: IV Fluids, Bolus: 1000 mL over 1 hour(s), Dispensed: 1000 mL bag, Site: #1. Medication Ordered: IV NS : initial bolus 1000 mL (1000 mL/hr), then none - (NOW). Given 18:44 08/10/2016 Caity Fabian R.N. Medication Administered: TORADOL [IVP], Dose: 30 mg IVP over 2 minute(s), Site: #1 right hand. Medication Ordered: Toradol IV 30 mg (NOW). Given 18:47 08/10/2016 Caity Fabian R.N. Medication Administered: ZOFRAN [IVP] (ONDANSETRON HCL), Dose: 4 mg IVP over 2 minute(s), Site: #1 right hand. Medication Ordered: Zofran IV 4 mg (NOW). Start 20:20 08/10/2016 Caity Fabian R.N. Medication Administered: KCL [IVPB] (POTASSIUM CHLORIDE), Dose: 20 meq IVPB over 2 hour(s), Rate: 50 mL/hr, Dispensed: 100 mL bag, Site: #1 right hand. Medication Ordered: KCl IV 20 meq/100mL (Run no faster than 10 units/hr, HIGH ALERT MEDICATION, NOW, Run no faster than 10 mEq/hr). Given 20:40 08/10/2016 Caity Fabian R.N. Medication Administered: NITROGLYCERIN PASTE [TOPICAL], Dose: 1.5 in. Paste Topical. Medication Ordered: NitroGLYCERIN Paste Topical 1.5 in. (NOW, to ). Given 20:54 08/10/2016 Knebel, Caity, R.N. Medication Administered: MAGNESIUM SULFATE [IVP] (MAGNESIUM SULFATE IN D5W), Dose: 2 gm IVP over 2 hour(s), Site: #1 right hand. Medication Ordered: Magnesium Sulfate IV 2 gm/50mL (HIGH ALERT MEDICATION, NOW, over 2 hours).
--- NOTE | 2016-08-11 17:04 | Progress Note ---
Subjective General Pt seen and examined. Patient has been persistently hypertensive throughout the day, with goal blood pressures obtained sporadically. Patient additionally has been complaining of abdominal pain which is occasionally poorly controlled. Constitutional Denies: Fever, Chills, Sweats, Weakness, Malaise, Other. Eyes Denies: Pain, Vision Change, Conjunctival Inflammation, Eyelid Inflammation, Redness, Other. ENT Denies: Ear Pain, Ear Discharge, Nose Pain, Nasal Discharge, Nasal Congestion, Mouth Pain, Mouth Swelling, Throat Pain, Throat Swelling, Other. Respiratory Denies: Cough, Dry, SOB w/exertion, Wheezing, Hemoptysis, Pleuritic Pain, Sputum , Other. Cardiovascular Denies: Chest Pain, Palpitations, Orthopnea, PND, Edema, Light-headedness, Other. Gastrointestinal Nausea, Abdominal Pain, Diarrhea. Denies: Vomiting, Constipation, Melena, Hematochezia, Other. Genitourinary Denies: Dysuria, Frequency, Incontinence, Hematuria, Retention, Other. Musculoskeletal Denies: Neck Pain, Shoulder Pain, Arm Pain, Back Pain, Hand Pain, Leg Pain, Foot Pain, Other. Skin Denies: Rash, Lesions, Jaundice, Bruising, Other. Neurological Denies: Weakness, Numbness, Incoordination, Change in speech, Confusion, Seizures, Other. Physical Exam Vital Signs / I&Os Vital Signs Date Time Temp Pulse Resp B/P Pulse O2 O2 Flow FiO2 Ox Delivery Rate 04/ 1655 64 04/05 1620 207/115 04/05 1515 184/114 04/05 1431 98.6 71 18 191/110 99 Room Air 04/05 0949 98.1 70 18 156/91 97 04/05 0913 66 04/05 0638 98.2 68 18 175/101 98 04/05 0509 169/105 04/05 0433 210/114 04/05 0328 187/101 04/05 0326 210/110 04/05 0256 98.1 73 19 187/114 94 Room Air 04/05 0138 68 04/05 0105 67 199/114 04/04 2248 58 178/100 04/04 2230 98.2 62 19 201/105 97 Room Air I&O / 0800 04/04 1600 04/05 0000 Intake Total Output Total Balance General Appearance Alert, Cooperative, No acute distress HEENT Atraumatic, PERRLA, Moist mucous membranes Lungs Normal air movement Cardiovascular Regular rate and rhythm, No murmurs, gallops, rubs Abdomen Soft, - tenderness to the bilateral lower quadrants Extremities No edema, Normal pulses, No tenderness, Strength = upper ext's, Strength = lower ext's LAB Results Laboratory Tests 08/12 0525 Chemistry Angiotensin Convert Enz Pending Renin Pending Assessment and Plan Problem List 1. Intractable nausea and vomiting Status Acute Onset Date Unknown Plan - resolved - pt had some evidence of colitis on ct scan - pt placed on flagyl as a precaution - less symptoms present today - will advance diet as tolerated 2. Hypertension Plan - pt has been having elevation of her blood pressure - pt placed on her home medication, with parameters for labetalol and po hydralazine in the event that her systolic crosses 180 - will continue to trend
[2016-08-12] VITALS (18 sets, daily range): BP systolic 132–210; BP diastolic 75–137
--- NOTE | 2016-08-12 17:55 | Progress Note ---
Subjective General Pt seen and examined. Patients blood pressure has significantly improved over the course of a day. Patient later in the day was seen to have elevation of her blood pressure without any inciting events. Patient was put on parameters to control elevations with both hydralazine and iv labetalol. Patient is otherwise stable. Constitutional Denies: Fever, Chills, Sweats, Weakness, Malaise, Other. ENT Denies: Ear Pain, Ear Discharge, Nose Pain, Nasal Discharge, Nasal Congestion, Mouth Pain, Mouth Swelling, Throat Pain, Throat Swelling, Other. Respiratory Denies: Cough, Dry, SOB w/exertion, Wheezing, Hemoptysis, Pleuritic Pain, Sputum , Other. Cardiovascular Denies: Chest Pain, Palpitations, Orthopnea, PND, Edema, Light-headedness, Other. Gastrointestinal Nausea, Abdominal Pain. Denies: Vomiting, Diarrhea, Constipation, Melena, Hematochezia, Other. Genitourinary Denies: Dysuria, Frequency, Incontinence, Hematuria, Retention, Other. Musculoskeletal Denies: Neck Pain, Shoulder Pain, Arm Pain, Back Pain, Hand Pain, Leg Pain, Foot Pain, Other. Skin Denies: Rash, Lesions, Jaundice, Bruising, Other. Neurological Denies: Weakness, Numbness, Incoordination, Change in speech, Confusion, Seizures, Other. Physical Exam Vital Signs / I&Os Vital Signs Date Time Temp Pulse Resp B/P Pulse O2 O2 Flow FiO2 Ox Delivery Rate 08/12 1730 187/113 04/06 1637 75 04/06 1628 210/137 04/06 1500 75 04/06 1446 98.4 75 18 195/135 99 Room Air 04/06 1352 83 18 145/119 99 04/06 1238 79 04/06 1238 188/114 04/06 1207 79 188/114 98 Room Air 04/06 1043 82 04/06 1029 98.1 82 18 198/123 100 Room Air 04/06 0815 Room Air 04/06 0729 72 164/88 04/06 0623 98.1 81 18 148/89 99 Room Air 04/06 0605 167/84 04/06 0530 167/84 04/06 0430 135/90 04/06 0407 74 04/06 0326 186/96 04/06 0221 97.9 74 18 151/84 98 Room Air 04/06 0115 132/79 04/06 0015 148/75 04/05 2315 144/72 04/ 2241 68 / 2223 98.4 68 18 190/123 97 Room Air 08/11 2159 96 08/11 2142 214/118 08/11 2140 139/105 08/11 1859 139/105 08/11 1821 156/94 04/ 1759 98.2 75 18 156/94 98 Room Air I&O 08/11 0800 04 1600 08/12 0000 Intake Total 0 0 2667 Output Total 650 375 475 Balance -650 -375 2192 General Appearance Alert, Oriented X3, Cooperative, No acute distress HEENT Atraumatic, EOMI, Moist mucous membranes Lungs Clear to auscultation, Normal air movement Cardiovascular Regular rate and rhythm, No murmurs, gallops, rubs Abdomen Soft, No tenderness Extremities No edema, Normal pulses, No tenderness Skin No Breakdown, No Significant Lesions Psych/Mental Status Mood normal Assessment and Plan Problem List 1. Hypertension Plan - pt has variable blood pressure with no good control - pt has various times of blood pressure spikes that dont correlate well with medication administration - will c/w metoprolol, hydralazine and lisinopril - will increase as necessary - will monitor for further detioration 2. Intractable nausea and vomiting Status Acute Onset Date Unknown Plan - resolved 3. Anemia Status Acute Onset Date Unknown Plan - stable 4. Hyponatremia Status Acute Onset Date 11/24/15 Plan - resolved
[2016-08-13] VITALS (8 sets, daily range): BP systolic 114–195; BP diastolic 80–132
[2016-08-14] VITALS (15 sets, daily range): BP systolic 103–218; BP diastolic 46–141
--- NOTE | 2016-08-14 17:29 | Progress Note ---
Subjective General Patient seen and examined. Patient has been doing well however her blood pressure remains poorly controlled. Patients medicaitons will be adjusted and we will look for other etiologies that could be leading to this. Constitutional Denies: Fever, Chills, Sweats, Weakness, Malaise, Other. Eyes Denies: Pain, Vision Change, Conjunctival Inflammation, Eyelid Inflammation, Redness, Other. Respiratory Denies: Cough, Dry, SOB w/exertion, Wheezing, Hemoptysis, Pleuritic Pain, Sputum , Other. Cardiovascular Denies: Chest Pain, Palpitations, Orthopnea, PND, Edema, Light-headedness, Other. Gastrointestinal Denies: Nausea, Vomiting, Abdominal Pain, Diarrhea, Constipation, Melena, Hematochezia, Other. Genitourinary Denies: Dysuria, Frequency, Incontinence, Hematuria, Retention, Other. Musculoskeletal Denies: Neck Pain, Shoulder Pain, Arm Pain, Back Pain, Hand Pain, Leg Pain, Foot Pain, Other. Neurological Denies: Weakness, Numbness, Incoordination, Change in speech, Confusion, Seizures, Other. Physical Exam Vital Signs / I&Os Vital Signs Date Time Temp Pulse Resp B/P Pulse O2 O2 Flow FiO2 Ox Delivery Rate 08/14 1644 Room Air 08/14 1600 103/46 08/14 1508 173/89 08/14 1403 98.1 64 18 131/99 100 Room Air 08/14 1327 64 18 158/107 100 Room Air 08/14 1246 73 18 169/117 100 Room Air 08/14 1116 154/103 08/14 1114 97.9 68 18 154/103 100 Room Air 08/14 0912 100 /08 0638 132/106 08/14 0626 98.2 72 15 132/106 100 Room Air 08/14 0422 60 179/141 08 0415 63 04/08 0357 60 195/115 08 0356 62 190/124 08 0329 218/116 08 0211 98.4 65 14 177/101 97 Room Air 08/13 2345 154/124 08/13 2202 146/114 08/13 2200 Room Air 08/13 2155 66 14 146/114 100 Room Air 08/13 2014 98.1 63 14 183/132 100 Room Air 08/13 1846 64 08/13 1835 98.2 59 18 195/116 100 Room Air I&O 08/13 0800 08/13 1600 08/14 0000 Intake Total 1845 500 240 Output Total 250 1200 900 Balance 1595 -700 -660 General Appearance Alert, Oriented X3, No acute distress HEENT Atraumatic, PERRLA, Moist mucous membranes Lungs Clear to auscultation, Normal air movement Neck Supple, No masses, No lymphadenopathy Cardiovascular Regular rate and rhythm, Normal S1 and S2, No murmurs, gallops, rubs Abdomen Soft, No rebound, No masses, No hepatosplenomegaly Extremities No edema, Normal pulses, Strength = upper ext's, Strength = lower ext's Skin No Breakdown, No Significant Lesions Neurological Normal tone, Sensation intact, Cranial nerves intact, Strength 5/5 x4 ext's, No lateralizing signs Assessment and Plan Problem List 1. Intractable nausea and vomiting Status Acute Onset Date Unknown Plan - resolved - able to tolerate a general diet 2. Hypertension Plan - pt remains poorly controlled - angiotensin, renin, and urine metanephrines ordered - will discharge patient and have her follow up as an out patient - will continue to monitor 3. Hyponatremia Status Acute Onset Date 11/24/15 Plan - resolved - pt encouraged to continue with low salt diet 4. Anemia Status Acute Onset Date Unknown Plan - stable 5. Depression Plan - pts mood has been appropriate - no intervention required
[2016-08-14] MEDS ORDERED: HYDRALAZINE HCL25 MG PO (17:31)
[2016-08-14] MEDS ORDERED: CLONIDINE HCL0.1 MG PO (17:31)
[2016-08-14] MEDS ORDERED: LOPRESSOR25 MG PO (17:31)
--- NOTE | 2016-08-14 17:34 | Provider's Discharge Care Plan ---
Problem, Goal, Plan Problem List 1. Hypertension Instructions: - take medications as prescribed - fill up urine collectio container in 24 hours and bring it to the hospital immediately after the 24 hour katie - have your doctor call for results that we are waiting for- angiotensin and renin - avoid salt - avoid stressfull situations 2. Intractable nausea and vomiting Instructions: - eat diet as tolerated
--- NOTE | 2016-08-14 18:24 | Discharge Summary ---
Discharge Summary Report Admit Date 08/10/16 Discharge Date 08/14/16 Admission Diagnosis intractable nausea and vomiting Discharge Diagnosis gastritis with uncontrollable blood pressure Brief History please refer to admission H&P Hospital Course Patient was admitted for the possiblity of gastritis. Patient was treated with antibiotics with good results. Patient during her time was seen to have very poorly controlled blood pressure. Medication adjustments were made however the patient was continually poorly controlled. Currently patients blood pressure remains high however it is much more controlled than previously. Ida has pending blood work that she will need to follow up on, specifically renin and angiotensin. Patient will additionally perform a 24 hour urine metanephrine test. Patient will return with the sample. Lastly patient will follow up with her primary care doctor within a week upon discharge. Patient told to avoid salt and stressful situations. General Appearance Alert, Oriented X3, No acute distress Lungs Normal air movement Cardiovascular Normal S1, Normal S2, No murmurs, Gallops Abdomen No tenderness, No hepatospenomegaly, No masses Skin No Breakdown, No Significant Lesions Neurological Normal speech, Normal tone, Sensation intact Psych/Mental Status Mental status NL Discharge Instructions/Meds - follow up on angiotensn and renin results - perform 24 hour urine collection and return with the results - follow up with your primary care doctor upon discharge
[2016-08-14] MEDS ORDERED: BUPRENORPHINE HC2 MG SL (18:39)
== END 2016-08-14 18:50 | disposition home or self-care (01) | DRG 392 ==
LOC: ED SRH 18:07 → TRANS SRH 20:08 → ACUTE2 SRH 22:20
PROVIDERS: ADMIT Internal Medicine
DX: K29.70 Gastritis, unspecified, without bleeding (principal); N39.0 Urinary tract infection, site not specified; R11.2 Nausea with vomiting, unspecified; I10 Essential (primary) hypertension; E87.6 Hypokalemia; E83.42 Hypomagnesemia; F17.200 Nicotine dependence, unspecified, uncomplicated; F32.9 Major depressive disorder, single episode, unspecified
CPT/HCPCS: 90004; 90074; 90100; 90257; 90469; 92010; 92235; 92530; 92720; 92760; 92761; 92762; 92763; 92764; 92765; 92766; 92767; 95059; 97680